=== PATIENT | male | born 1950 | race Caucasian/White ===

== ENCOUNTER 2019-02-12 16:00 | Outpatient (RCR) | payer OTHER, SELFPAY ==
--- NOTE | 2018-12-25 17:30 | PT.OIE ---
Current Diagnoses Pain in unspecified joint (12/25/18) Pain in unspecified shoulder (12/25/18) Radiculopathy, lumbar region (12/25/18) Provider Visit Care Team Role Provider Type Rafiq Griggs MD Attending Provider Physician Family Provider Primary Care Provider Specialty: Family Practice Address: [facility] [place], [address] Email: [email or web address] Physical Therapy Initial Evaluation PT-OP-A Visit Information Start: 12/25/18 15:57 Freq: Status: Active Protocol: Document 12/25/18 17:10 EA (Rec: 12/25/18 17:14 EA [id number]) Out-Patient Physical Therapy Visit Information Visit Information Visit Type Initial Evaluation Visit Start Time 09:00 Visit Stop Time 09:45 Total Visit Minutes 45 Visit Number 1 Evaluation Information Evaluation Date 12/25/18 PT-OP-B Current Condition Start: 12/25/18 15:57 Freq: Status: Active Protocol: Document 12/25/18 16:09 EA (Rec: 12/27/18 09:34 EA [id number]) Current Condition History of Current Condition Onset Date a year ago Current Complaints R low back pain with occasional right posterior thigh/ leg radiation History of Current Condition Pt reports current condition started 1 year ago after working on his deck for several hours with lots of bending and lifting. He reports pain did not resolved with rest and treatment from chiropractor. He noted pain mostly increased upon getting up in the morning and slowly decreased once mobilized, however increased of pain in the late afternoon. Patient denies any significant history that could relate to current condition. 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 Baseline Function- Recreation/Hobbies Daily walks more than a mile per day, Play tennis, skii Current Functional Impairments (Reported) Functional Limitations- ADL's Indep with limitation in all activities that require bending and lifting. Functional Limitations- Mobility/Gait Limited mobility to leas than a mile Functional Limitations- Work/School Retired Functional Limitations- Recreation/ Limited to activities that Hobbies requires bending and lifting Personal Factors Other Personal Factors That May Effect Headaches, thyroid disorder Therapy/Recovery PT-OP-C Subjective Start: 12/25/18 15:57 Freq: Status: Active Protocol: Document 12/25/18 16:09 EA (Rec: 12/27/18 09:34 EA [id number]) OP-PT Subjective Patient Comments Patient Comments I want my PT session to focus on my right low back and and hip area. My shoulder pain is much better at this time. PT-OP-F Manual Assessment Start: 12/25/18 15:57 Freq: Status: Active Protocol: Document 12/25/18 16:09 EA (Rec: 12/27/18 09:34 EA [id number]) Manual Assessments Soft Tissue Assessment Soft Tissue Mobility Assessment Tight pralaumbars, QL, Hamstring, hip external rotators, IT band PT-OP-G Mobility & Gait Start: 12/25/18 15:57 Freq: Status: Active Protocol: Document 12/25/18 16:09 EA (Rec: 12/27/18 09:34 EA [id number]) OP Gait Assessment Gait Gait Assistance Required: Independent Gait Deviations General Gait Pattern Within Normal Limits PT-OP-J Posture/Palpation/Skin Start: 12/25/18 15:57 Freq: Status: Active Protocol: Document 12/25/18 16:09 EA (Rec: 12/27/18 09:34 EA [id number]) Posture Evaluation Comments Posture Comments Minimal increased of lumbar lordosis. Palpation Assessment Location One Palpation Location Paralumbars, right SI joint Palpation Findings Soft Tissue Tightness Tenderness PT-OP-K Range of Motion Start: 12/25/18 15:57 Freq: Status: Active Protocol: Document 12/25/18 16:09 EA (Rec: 12/27/18 09:34 EA [id number]) Lumbar Spine Range of Motion Lumbar Spine Active Percentage Testing Position Standing Flexion 80 Extension 75 Rotation Left 75 Rotation Right 70 Lateral Flexion Left 75 Lateral Flexion Right 75 ROM Limitations Soft Tissue Tightness PT-OP-L Special Tests Start: 12/25/18 15:57 Freq: Status: Active Protocol: Document 12/25/18 16:09 EA (Rec: 12/27/18 09:34 EA [id number]) Special Tests Lumbar Spine Special Tests Other- 2 Test Results Right leg 2 cm greater than left Other- 1 Test Results Gaenslen's test Comments - Slump Test Results - Prone Instability Test Test Results sensitive Straight Leg Raise Test Results + Comments SI joint Neural Special Tests- Lower Body Femoral Nerve Tension Test Results - Sciatic Nerve Tension Test Results - PT-OP-M Strength Start: 12/25/18 15:57 Freq: Status: Active Protocol: Document 12/25/18 16:09 EA (Rec: 12/27/18 09:34 EA [id number]) Hip Strength Hip Manual Muscle Testing Right Flexion (L2) 5 Normal Reason Not Measured Behavior Comments Patient able to walk on toes and heel with no increased of symptoms with weakness noted Left Flexion (L2) 5 Normal Reason Not Measured WFL Comments Patient able to walk on toes and heels with no weakness noted. Knee Strength Knee Manual Muscle Testing Right Flexion (S2) 5 Normal Extension (L3) 5 Normal Left Flexion (S2) 5 Normal Extension (L3) 5 Normal Ankle/Foot Strength Ankle and Foot Manual Muscle Testing Right Dorsiflexion (L4) 5 Normal Plantarflexion (S1) 5 Normal Inversion 5 Normal Eversion (S1) 5 Normal PT-OP-Q Treatments Start: 12/25/18 15:57 Freq: Status: Active Protocol: Document 12/25/18 17:36 EA (Rec: 12/27/18 09:38 EA [id number]) Therapeutic Exercises Supine Exercises 3 Supine Exercise Name Piriformis stretch Reps/Minutes x15SH x 2 reps 2 Supine Exercise Name DKTC Reps/Minutes x30SH x 2 reps 1 Supine Exercise Name SKTC Side bilateral Reps/Minutes x 2reps x 15SH Self-Care/Home Management Treatment Education Patient Education Body Mechanics Home Exercise Program Pain Management Posture PT-OP-T Assessment and Plan Start: 12/25/18 15:57 Freq: Status: Active Protocol: Document 12/25/18 17:10 EA (Rec: 12/25/18 17:14 EA [id number]) Physical Therapy Assessment Rehab Potential Rehabilitation Potential Good Evaluation Complexity Number of Personal Factors/Comorbidities 1-2 Number of Body Systems Impaired 3 Clinical Presentation at Evaluation Stable Impairments Impairments Activity Tolerance Pain Posture ROM Soft Tissue Mobility Strength Goals Four Impairment Impaired lifting Senior Sous Chef Goal (LTG) Patient will perfrom floor to waist 20# lifting with good mechanics with no increase of symptoms. LTG Duration 4 wks Three Impairment Impaired B IT band, lumbar, hamstrings, hips external rotators flexibility Senior Care Goal (LTG) Patient will exhibit normal soft tissue flexibility to both hamstrings, paralumbars, QL, IT band to enhance functional mobility LTG Duration 4 wks Two Impairment Impaired distance mobility Senior Care Goal (LTG) Patient will ambulate > 1 mile per day with no increase of low back symptoms LTG Duration 4 wks One Impairment No HEP in place Senior Sous Chef Goal (LTG) Independent with HEP LTG Duration 3 wks Assessment Summary Assessment Pleasant 68 y/o M patient with a referring diagnosis of lumbar radiculopathy and shoulder joint pain. Today patient exhibits difficulty of trunk mobility due to stiffness and pain to low back region. Assessment reveals, hip external rotator tightness , paralumbars, QL, hamstrings, and both ITB. Special tests reveals. SLR positive to SI joint with + leg length discrepancy of 2 cm but corrected in supine. Palpation reveals R L5-S1 decreased AP mobility and tightness to right paralumbars, Ql with right more than the left. NO weakness to both LE's noted and patient able to walk on toes and heels. Patient does not want right shoulder to focus on therapy. 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 Patient would benefit with skilled PT to address the issue and reach high quality of life. Physical Therapy Plan Frequency and Duration Frequency of Treatment 2x/Week Duration of Treatment 8 wks Plan of Care Start Date 12/25/18 Plan of Care End Date 02/19/19 Therapeutic Interventions Therapeutic Interventions Home Exercise Program Manual Therapy Neuromuscular Re-education Patient/Caregiver Education Self-Care/Home Management Soft Tissue Mobilization Taping Therapeutic Activities Therapeutic Exercises Modalities Cold Pack/Ice Massage Electric Stimulation Hot Packs Ultrasound Next Visit Focus/Plan Next Note Type Treatment Note Next Visit Plan Provide HEP
--- NOTE | 2018-12-28 10:44 | PT.OTN ---
Current Diagnoses Pain in unspecified joint (12/28/18) Pain in unspecified shoulder (12/28/18) Radiculopathy, lumbar region (12/28/18) Physical Therapy Treatment Note PT-OP-A Visit Information Start: 12/25/18 15:57 Freq: Status: Active Protocol: Document 12/28/18 10:35 EA (Rec: 12/28/18 10:43 EA [id number]) Out-Patient Physical Therapy Visit Information Visit Information Visit Type Treatment Note Visit Start Time 09:45 Visit Stop Time 10:38 Total Visit Minutes 53 Visit Number 2 PT-OP-B Current Condition Start: 12/25/18 15:57 Freq: Status: Active Protocol: Document 12/25/18 16:09 EA (Rec: 12/27/18 09:34 EA [id number]) Current Condition History of Current Condition Onset Date a year ago Current Complaints R low back pain with occasional right posterior thigh/ leg radiation History of Current Condition Pt reports current condition started 1 year ago after working on his deck for several hours with lots of bending and lifting. He reports pain did not resolved with rest and treatment from chiropractor. He noted pain mostly increased upon getting up in the morning and slowly decreased once mobilized, however increased of pain in the late afternoon. Patient denies any significant history that could relate to current condition. 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 Baseline Function- Recreation/Hobbies Daily walks more than a mile per day, Play tennis, skii Current Functional Impairments (Reported) Functional Limitations- ADL's Indep with limitation in all activities that require bending and lifting. Functional Limitations- Mobility/Gait Limited mobility to leas than a mile Functional Limitations- Work/School Retired Functional Limitations- Recreation/ Limited to activities that Hobbies requires bending and lifting Personal Factors Other Personal Factors That May Effect Headaches, thyroid disorder Therapy/Recovery PT-OP-C Subjective Start: 12/25/18 15:57 Freq: Status: Active Protocol: Document 12/28/18 10:35 EA (Rec: 12/28/18 10:43 EA [id number]) OP-PT Subjective Patient Comments Patient Comments Pt reports pain comes and goes ; states perform HEP and it helps PT-OP-F Manual Assessment Start: 12/25/18 15:57 Freq: Status: Active Protocol: Document 12/25/18 16:09 EA (Rec: 12/27/18 09:34 EA [id number]) Manual Assessments Soft Tissue Assessment Soft Tissue Mobility Assessment Tight pralaumbars, QL, Hamstring, hip external rotators, IT band PT-OP-G Mobility & Gait Start: 12/25/18 15:57 Freq: Status: Active Protocol: Document 12/25/18 16:09 EA (Rec: 12/27/18 09:34 EA [id number]) OP Gait Assessment Gait Gait Assistance Required: Independent Gait Deviations General Gait Pattern Within Normal Limits PT-OP-J Posture/Palpation/Skin Start: 12/25/18 15:57 Freq: Status: Active Protocol: Document 12/25/18 16:09 EA (Rec: 12/27/18 09:34 EA [id number]) Posture Evaluation Comments Posture Comments Minimal increased of lumbar lordosis. Palpation Assessment Location One Palpation Location Paralumbars, right SI joint Palpation Findings Soft Tissue Tightness Tenderness PT-OP-K Range of Motion Start: 12/25/18 15:57 Freq: Status: Active Protocol: Document 12/25/18 16:09 EA (Rec: 12/27/18 09:34 EA [id number]) Lumbar Spine Range of Motion Lumbar Spine Active Percentage Testing Position Standing Flexion 80 Extension 75 Rotation Left 75 Rotation Right 70 Lateral Flexion Left 75 Lateral Flexion Right 75 ROM Limitations Soft Tissue Tightness PT-OP-L Special Tests Start: 12/25/18 15:57 Freq: Status: Active Protocol: Document 12/25/18 16:09 EA (Rec: 12/27/18 09:34 EA [id number]) Special Tests Lumbar Spine Special Tests Other- 2 Test Results Right leg 2 cm greater than left Other- 1 Test Results Gaenslen's test Comments - Slump Test Results - Prone Instability Test Test Results sensitive Straight Leg Raise Test Results + Comments SI joint Neural Special Tests- Lower Body Femoral Nerve Tension Test Results - Sciatic Nerve Tension Test Results - PT-OP-M Strength Start: 12/25/18 15:57 Freq: Status: Active Protocol: Document 12/25/18 16:09 EA (Rec: 12/27/18 09:34 EA [id number]) Hip Strength Hip Manual Muscle Testing Right Flexion (L2) 5 Normal Reason Not Measured Behavior Comments Patient able to walk on toes and heel with no increased of symptoms with weakness noted Left Flexion (L2) 5 Normal Reason Not Measured WFL Comments Patient able to walk on toes and heels with no weakness noted. Knee Strength Knee Manual Muscle Testing Right Flexion (S2) 5 Normal Extension (L3) 5 Normal Left Flexion (S2) 5 Normal Extension (L3) 5 Normal Ankle/Foot Strength Ankle and Foot Manual Muscle Testing Right Dorsiflexion (L4) 5 Normal Plantarflexion (S1) 5 Normal Inversion 5 Normal Eversion (S1) 5 Normal PT-OP-Q Treatments Start: 12/25/18 15:57 Freq: Status: Active Protocol: Document 12/28/18 10:35 EA (Rec: 12/28/18 10:43 EA [id number]) Cardio Equipment Recumbent Stepper (Sci-Fit) Duration (Minutes) 5 Resistance 3 Other warm up Therapeutic Exercises Supine Exercises 6 Supine Exercise Name PPT with marching Reps/Minutes x 10 reps x 3 sets 5 Supine Exercise Name PPT with SLR Reps/Minutes x 10 reps x 2 sets each leg 4 Supine Exercise Name Hamstring stretch Side bilateral Reps/Minutes x 15SH x 2 reps Comments manual/passive 3 Supine Exercise Name Piriformis stretch Reps/Minutes x15SH x 2 reps 2 Supine Exercise Name DKTC Reps/Minutes x30SH x 2 reps 1 Supine Exercise Name SKTC Side bilateral Reps/Minutes x 2reps x 15SH Standing Exercises 1 Standing Exercise Name floor to waist squat lift Resistance 20# Reps/Minutes 5 reps x 2 sets Comments cues for body mechanics Manual Therapy Treatment Soft Tissue Mobilization 1 Body Location Right paralumbars, upper gluteals Mobilization Type Myofascial Release Rolling Sustained Pressure Intensity/Depth Moderate Body Position Prone Comments To start with effleurage and kneading and end with effleurage. Self-Care/Home Management Treatment Education Patient Education Home Exercise Program PT-OP-R Modalities Start: 12/25/18 15:57 Freq: Status: Active Protocol: Document 12/28/18 10:35 EA (Rec: 12/28/18 10:43 EA [id number]) Electric Stimulation Electric Stimulation Interferential Current (IFC) Body Location right paralumbars, upper gluteals Duration (Minutes) 15 Intensity 15 Combined With Heat/Cold Hot Pack PT-OP-T Assessment and Plan Start: 12/25/18 15:57 Freq: Status: Active Protocol: Document 12/28/18 10:35 EA (Rec: 12/28/18 10:43 EA [id number]) Physical Therapy Assessment Assessment Summary Assessment Tolerated treatment well. Cont with current plan. Physical Therapy Plan Next Visit Focus/Plan Next Note Type Treatment Note
--- NOTE | 2019-01-01 11:12 | PT.OTN ---
Current Diagnoses Pain in unspecified joint (01/01/19) Pain in unspecified shoulder (01/01/19) Radiculopathy, lumbar region (01/01/19) Physical Therapy Treatment Note PT-OP-A Visit Information Start: 12/25/18 15:57 Freq: Status: Active Protocol: Document 01/01/19 09:49 EA (Rec: 01/01/19 10:33 EA [id number]) Out-Patient Physical Therapy Visit Information Visit Information Visit Type Treatment Note Visit Start Time 09:45 Visit Stop Time 10:38 Total Visit Minutes 53 Visit Number 3 PT-OP-B Current Condition Start: 12/25/18 15:57 Freq: Status: Active Protocol: Document 12/25/18 16:09 EA (Rec: 12/27/18 09:34 EA [id number]) Current Condition History of Current Condition Onset Date a year ago Current Complaints R low back pain with occasional right posterior thigh/ leg radiation History of Current Condition Pt reports current condition started 1 year ago after working on his deck for several hours with lots of bending and lifting. He reports pain did not resolved with rest and treatment from chiropractor. He noted pain mostly increased upon getting up in the morning and slowly decreased once mobilized, however increased of pain in the late afternoon. Patient denies any significant history that could relate to current condition. 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 Baseline Function- Recreation/Hobbies Daily walks more than a mile per day, Play tennis, skii Current Functional Impairments (Reported) Functional Limitations- ADL's Indep with limitation in all activities that require bending and lifting. Functional Limitations- Mobility/Gait Limited mobility to leas than a mile Functional Limitations- Work/School Retired Functional Limitations- Recreation/ Limited to activities that Hobbies requires bending and lifting Personal Factors Other Personal Factors That May Effect Headaches, thyroid disorder Therapy/Recovery PT-OP-C Subjective Start: 12/25/18 15:57 Freq: Status: Active Protocol: Document 01/01/19 09:49 EA (Rec: 01/01/19 10:33 EA [id number]) OP-PT Subjective Patient Comments Patient Comments Pt reports complaint with HEP; states frequency of pain is much less. PT-OP-F Manual Assessment Start: 12/25/18 15:57 Freq: Status: Active Protocol: Document 12/25/18 16:09 EA (Rec: 12/27/18 09:34 EA [id number]) Manual Assessments Soft Tissue Assessment Soft Tissue Mobility Assessment Tight pralaumbars, QL, Hamstring, hip external rotators, IT band PT-OP-G Mobility & Gait Start: 12/25/18 15:57 Freq: Status: Active Protocol: Document 12/25/18 16:09 EA (Rec: 12/27/18 09:34 EA [id number]) OP Gait Assessment Gait Gait Assistance Required: Independent Gait Deviations General Gait Pattern Within Normal Limits PT-OP-J Posture/Palpation/Skin Start: 12/25/18 15:57 Freq: Status: Active Protocol: Document 12/25/18 16:09 EA (Rec: 12/27/18 09:34 EA [id number]) Posture Evaluation Comments Posture Comments Minimal increased of lumbar lordosis. Palpation Assessment Location One Palpation Location Paralumbars, right SI joint Palpation Findings Soft Tissue Tightness Tenderness PT-OP-K Range of Motion Start: 12/25/18 15:57 Freq: Status: Active Protocol: Document 12/25/18 16:09 EA (Rec: 12/27/18 09:34 EA [id number]) Lumbar Spine Range of Motion Lumbar Spine Active Percentage Testing Position Standing Flexion 80 Extension 75 Rotation Left 75 Rotation Right 70 Lateral Flexion Left 75 Lateral Flexion Right 75 ROM Limitations Soft Tissue Tightness PT-OP-L Special Tests Start: 12/25/18 15:57 Freq: Status: Active Protocol: Document 12/25/18 16:09 EA (Rec: 12/27/18 09:34 EA [id number]) Special Tests Lumbar Spine Special Tests Other- 2 Test Results Right leg 2 cm greater than left Other- 1 Test Results Gaenslen's test Comments - Slump Test Results - Prone Instability Test Test Results sensitive Straight Leg Raise Test Results + Comments SI joint Neural Special Tests- Lower Body Femoral Nerve Tension Test Results - Sciatic Nerve Tension Test Results - PT-OP-M Strength Start: 12/25/18 15:57 Freq: Status: Active Protocol: Document 12/25/18 16:09 EA (Rec: 12/27/18 09:34 EA [id number]) Hip Strength Hip Manual Muscle Testing Right Flexion (L2) 5 Normal Reason Not Measured Behavior Comments Patient able to walk on toes and heel with no increased of symptoms with weakness noted Left Flexion (L2) 5 Normal Reason Not Measured WFL Comments Patient able to walk on toes and heels with no weakness noted. Knee Strength Knee Manual Muscle Testing Right Flexion (S2) 5 Normal Extension (L3) 5 Normal Left Flexion (S2) 5 Normal Extension (L3) 5 Normal Ankle/Foot Strength Ankle and Foot Manual Muscle Testing Right Dorsiflexion (L4) 5 Normal Plantarflexion (S1) 5 Normal Inversion 5 Normal Eversion (S1) 5 Normal PT-OP-Q Treatments Start: 12/25/18 15:57 Freq: Status: Active Protocol: Document 01/01/19 09:49 EA (Rec: 01/01/19 10:33 EA [id number]) Cardio Equipment Recumbent Stepper (Sci-Fit) Duration (Minutes) 5 Resistance 3 Other warm up Therapeutic Exercises Supine Exercises 6 Supine Exercise Name PPT with marching Reps/Minutes x 10 reps x 3 sets 5 Supine Exercise Name PPT with SLR Reps/Minutes x 10 reps x 2 sets each leg 4 Supine Exercise Name Hamstring stretch Side bilateral Reps/Minutes x 15SH x 2 reps Comments manual/passive 3 Supine Exercise Name Piriformis stretch Reps/Minutes x15SH x 2 reps 2 Supine Exercise Name DKTC Reps/Minutes x30SH x 2 reps 1 Supine Exercise Name SKTC Side bilateral Reps/Minutes x 2reps x 15SH Sitting Exercises 1 Sitting Exercise Name low chair fwd bending: front and sides. Reps/Minutes x15SH x 2 reps Standing Exercises 1 Standing Exercise Name floor to waist squat lift Resistance 20# Reps/Minutes 5 reps x 2 sets Comments cues for body mechanics Manual Therapy Treatment Soft Tissue Mobilization 1 Body Location Right paralumbars, upper gluteals Mobilization Type Myofascial Release Rolling Sustained Pressure Intensity/Depth Moderate Body Position Prone Comments To start with effleurage and kneading and end with effleurage. PT-OP-R Modalities Start: 12/25/18 15:57 Freq: Status: Active Protocol: Document 01/01/19 09:49 EA (Rec: 01/01/19 10:33 EA [id number]) Electric Stimulation Electric Stimulation Interferential Current (IFC) Body Location right paralumbars, upper gluteals Duration (Minutes) 15 Intensity 15 Combined With Heat/Cold Hot Pack PT-OP-T Assessment and Plan Start: 12/25/18 15:57 Freq: Status: Active Protocol: Document 01/01/19 09:49 EA (Rec: 01/01/19 10:33 EA [id number]) Physical Therapy Assessment Assessment Summary Assessment Improved exercises tolerance and manual PT. Pt to see next session in conditioning preparation for tennis sports. Physical Therapy Plan Next Visit Focus/Plan Next Note Type Treatment Note Next Visit Plan Leg and trunk conditioning exercises.
--- NOTE | 2019-01-18 10:45 | PT.OTN ---
Current Diagnoses Pain in unspecified joint (01/18/19) Pain in unspecified shoulder (01/18/19) Radiculopathy, lumbar region (01/18/19) Physical Therapy Treatment Note PT-OP-A Visit Information Start: 12/25/18 15:57 Freq: Status: Active Protocol: Document 01/18/19 09:36 EA (Rec: 01/18/19 09:43 EA [id number]) Out-Patient Physical Therapy Visit Information Visit Information Visit Type Treatment Note Visit Start Time 09:00 Visit Stop Time 09:53 Total Visit Minutes 53 Visit Number 4 PT-OP-B Current Condition Start: 12/25/18 15:57 Freq: Status: Active Protocol: Document 12/25/18 16:09 EA (Rec: 12/27/18 09:34 EA [id number]) Current Condition History of Current Condition Onset Date a year ago Current Complaints R low back pain with occasional right posterior thigh/ leg radiation History of Current Condition Pt reports current condition started 1 year ago after working on his deck for several hours with lots of bending and lifting. He reports pain did not resolved with rest and treatment from chiropractor. He noted pain mostly increased upon getting up in the morning and slowly decreased once mobilized, however increased of pain in the late afternoon. Patient denies any significant history that could relate to current condition. 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 Baseline Function- Recreation/Hobbies Daily walks more than a mile per day, Play tennis, skii Current Functional Impairments (Reported) Functional Limitations- ADL's Indep with limitation in all activities that require bending and lifting. Functional Limitations- Mobility/Gait Limited mobility to leas than a mile Functional Limitations- Work/School Retired Functional Limitations- Recreation/ Limited to activities that Hobbies requires bending and lifting Personal Factors Other Personal Factors That May Effect Headaches, thyroid disorder Therapy/Recovery PT-OP-C Subjective Start: 12/25/18 15:57 Freq: Status: Active Protocol: Document 01/18/19 09:36 EA (Rec: 01/18/19 09:43 EA [id number]) OP-PT Subjective Patient Comments Patient Comments Pt reports very less frequent symptoms aggravation; states much feeling better at this time. PT-OP-F Manual Assessment Start: 12/25/18 15:57 Freq: Status: Active Protocol: Document 12/25/18 16:09 EA (Rec: 12/27/18 09:34 EA [id number]) Manual Assessments Soft Tissue Assessment Soft Tissue Mobility Assessment Tight pralaumbars, QL, Hamstring, hip external rotators, IT band PT-OP-G Mobility & Gait Start: 12/25/18 15:57 Freq: Status: Active Protocol: Document 12/25/18 16:09 EA (Rec: 12/27/18 09:34 EA [id number]) OP Gait Assessment Gait Gait Assistance Required: Independent Gait Deviations General Gait Pattern Within Normal Limits PT-OP-J Posture/Palpation/Skin Start: 12/25/18 15:57 Freq: Status: Active Protocol: Document 12/25/18 16:09 EA (Rec: 12/27/18 09:34 EA [id number]) Posture Evaluation Comments Posture Comments Minimal increased of lumbar lordosis. Palpation Assessment Location One Palpation Location Paralumbars, right SI joint Palpation Findings Soft Tissue Tightness Tenderness PT-OP-K Range of Motion Start: 12/25/18 15:57 Freq: Status: Active Protocol: Document 12/25/18 16:09 EA (Rec: 12/27/18 09:34 EA [id number]) Lumbar Spine Range of Motion Lumbar Spine Active Percentage Testing Position Standing Flexion 80 Extension 75 Rotation Left 75 Rotation Right 70 Lateral Flexion Left 75 Lateral Flexion Right 75 ROM Limitations Soft Tissue Tightness PT-OP-L Special Tests Start: 12/25/18 15:57 Freq: Status: Active Protocol: Document 12/25/18 16:09 EA (Rec: 12/27/18 09:34 EA [id number]) Special Tests Lumbar Spine Special Tests Other- 2 Test Results Right leg 2 cm greater than left Other- 1 Test Results Gaenslen's test Comments - Slump Test Results - Prone Instability Test Test Results sensitive Straight Leg Raise Test Results + Comments SI joint Neural Special Tests- Lower Body Femoral Nerve Tension Test Results - Sciatic Nerve Tension Test Results - PT-OP-M Strength Start: 12/25/18 15:57 Freq: Status: Active Protocol: Document 12/25/18 16:09 EA (Rec: 12/27/18 09:34 EA [id number]) Hip Strength Hip Manual Muscle Testing Right Flexion (L2) 5 Normal Reason Not Measured Behavior Comments Patient able to walk on toes and heel with no increased of symptoms with weakness noted Left Flexion (L2) 5 Normal Reason Not Measured WFL Comments Patient able to walk on toes and heels with no weakness noted. Knee Strength Knee Manual Muscle Testing Right Flexion (S2) 5 Normal Extension (L3) 5 Normal Left Flexion (S2) 5 Normal Extension (L3) 5 Normal Ankle/Foot Strength Ankle and Foot Manual Muscle Testing Right Dorsiflexion (L4) 5 Normal Plantarflexion (S1) 5 Normal Inversion 5 Normal Eversion (S1) 5 Normal PT-OP-Q Treatments Start: 12/25/18 15:57 Freq: Status: Active Protocol: Document 01/18/19 09:36 EA (Rec: 01/18/19 09:43 EA [id number]) Cardio Equipment Recumbent Stepper (Sci-Fit) Duration (Minutes) 5 Resistance 3 Other warm up Therapeutic Exercises Supine Exercises 6 Supine Exercise Name PPT with marching Reps/Minutes x 10 reps x 3 sets 5 Supine Exercise Name PPT with SLR Reps/Minutes x 10 reps x 2 sets each leg 4 Supine Exercise Name Hamstring stretch Side bilateral Reps/Minutes x 15SH x 2 reps Comments manual/passive 3 Supine Exercise Name Piriformis stretch Reps/Minutes x15SH x 2 reps 2 Supine Exercise Name DKTC Reps/Minutes x30SH x 2 reps 1 Supine Exercise Name SKTC Side bilateral Reps/Minutes x 2reps x 15SH Prone Exercises 2 Prone Exercise Name Camel and cat Reps/Minutes x 15 reps Sitting Exercises 1 Sitting Exercise Name low chair fwd bending: front and sides. Reps/Minutes x15SH x 2 reps Standing Exercises 4 Standing Exercise Name Side step squat Resistance YTB Reps/Minutes 12 ft x 2 lines Comments cues for posture 3 Standing Exercise Name fwd lunges with no support Reps/Minutes x 15 ft line x 2 Comments cues for posture 2 Standing Exercise Name Correctetive squatting Reps/Minutes x 10 reps x 2 sets 1 Standing Exercise Name Hamstrins, hip flexors, and calves stretch Side bilateral Reps/Minutes x 15SH x 2 reps each Manual Therapy Treatment Soft Tissue Mobilization 1 Body Location Right paralumbars, upper gluteals Mobilization Type Myofascial Release Rolling Sustained Pressure Intensity/Depth Moderate Body Position Prone Comments To start with effleurage and kneading and end with effleurage. PT-OP-R Modalities Start: 12/25/18 15:57 Freq: Status: Active Protocol: Document 01/18/19 09:36 EA (Rec: 01/18/19 09:43 EA [id number]) Electric Stimulation Electric Stimulation Interferential Current (IFC) Body Location right paralumbars, upper gluteals Duration (Minutes) 15 Intensity 15 Combined With Heat/Cold Hot Pack PT-OP-T Assessment and Plan Start: 12/25/18 15:57 Freq: Status: Active Protocol: Document 01/18/19 09:36 EA (Rec: 01/18/19 09:43 EA [id number]) Physical Therapy Assessment Assessment Summary Assessment No discomfort noted during therex. Patient requires for form and posture during standing therex. Physical Therapy Plan Next Visit Focus/Plan Next Visit Plan Provide HEP with images
--- NOTE | 2019-01-25 12:15 | PT.OTN ---
Current Diagnoses Pain in unspecified joint (01/25/19) Pain in unspecified shoulder (01/25/19) Radiculopathy, lumbar region (01/25/19) Physical Therapy Treatment Note PT-OP-A Visit Information Start: 12/25/18 15:57 Freq: Status: Active Protocol: Document 01/25/19 11:14 EA (Rec: 01/25/19 11:15 EA [id number]) Out-Patient Physical Therapy Visit Information Visit Information Visit Type Treatment Note Visit Start Time 09:45 Visit Stop Time 10:38 Total Visit Minutes 53 Visit Number 5 PT-OP-B Current Condition Start: 12/25/18 15:57 Freq: Status: Active Protocol: Document 12/25/18 16:09 EA (Rec: 12/27/18 09:34 EA [id number]) Current Condition History of Current Condition Onset Date a year ago Current Complaints R low back pain with occasional right posterior thigh/ leg radiation History of Current Condition Pt reports current condition started 1 year ago after working on his deck for several hours with lots of bending and lifting. He reports pain did not resolved with rest and treatment from chiropractor. He noted pain mostly increased upon getting up in the morning and slowly decreased once mobilized, however increased of pain in the late afternoon. Patient denies any significant history that could relate to current condition. 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 Baseline Function- Recreation/Hobbies Daily walks more than a mile per day, Play tennis, skii Current Functional Impairments (Reported) Functional Limitations- ADL's Indep with limitation in all activities that require bending and lifting. Functional Limitations- Mobility/Gait Limited mobility to leas than a mile Functional Limitations- Work/School Retired Functional Limitations- Recreation/ Limited to activities that Hobbies requires bending and lifting Personal Factors Other Personal Factors That May Effect Headaches, thyroid disorder Therapy/Recovery PT-OP-C Subjective Start: 12/25/18 15:57 Freq: Status: Active Protocol: Document 01/25/19 12:12 EA (Rec: 01/25/19 12:15 EA [id number]) OP-PT Subjective Patient Comments Patient Comments Pt reports complaint with HEP and would like to have standing exercises HEP; states very less frequent pain to low back. Patient Reported Progress Improving PT-OP-F Manual Assessment Start: 12/25/18 15:57 Freq: Status: Active Protocol: Document 12/25/18 16:09 EA (Rec: 12/27/18 09:34 EA [id number]) Manual Assessments Soft Tissue Assessment Soft Tissue Mobility Assessment Tight pralaumbars, QL, Hamstring, hip external rotators, IT band PT-OP-G Mobility & Gait Start: 12/25/18 15:57 Freq: Status: Active Protocol: Document 12/25/18 16:09 EA (Rec: 12/27/18 09:34 EA [id number]) OP Gait Assessment Gait Gait Assistance Required: Independent Gait Deviations General Gait Pattern Within Normal Limits PT-OP-J Posture/Palpation/Skin Start: 12/25/18 15:57 Freq: Status: Active Protocol: Document 12/25/18 16:09 EA (Rec: 12/27/18 09:34 EA [id number]) Posture Evaluation Comments Posture Comments Minimal increased of lumbar lordosis. Palpation Assessment Location One Palpation Location Paralumbars, right SI joint Palpation Findings Soft Tissue Tightness Tenderness PT-OP-K Range of Motion Start: 12/25/18 15:57 Freq: Status: Active Protocol: Document 12/25/18 16:09 EA (Rec: 12/27/18 09:34 EA [id number]) Lumbar Spine Range of Motion Lumbar Spine Active Percentage Testing Position Standing Flexion 80 Extension 75 Rotation Left 75 Rotation Right 70 Lateral Flexion Left 75 Lateral Flexion Right 75 ROM Limitations Soft Tissue Tightness PT-OP-L Special Tests Start: 12/25/18 15:57 Freq: Status: Active Protocol: Document 12/25/18 16:09 EA (Rec: 12/27/18 09:34 EA [id number]) Special Tests Lumbar Spine Special Tests Other- 2 Test Results Right leg 2 cm greater than left Other- 1 Test Results Gaenslen's test Comments - Slump Test Results - Prone Instability Test Test Results sensitive Straight Leg Raise Test Results + Comments SI joint Neural Special Tests- Lower Body Femoral Nerve Tension Test Results - Sciatic Nerve Tension Test Results - PT-OP-M Strength Start: 12/25/18 15:57 Freq: Status: Active Protocol: Document 12/25/18 16:09 EA (Rec: 12/27/18 09:34 EA [id number]) Hip Strength Hip Manual Muscle Testing Right Flexion (L2) 5 Normal Reason Not Measured Behavior Comments Patient able to walk on toes and heel with no increased of symptoms with weakness noted Left Flexion (L2) 5 Normal Reason Not Measured WFL Comments Patient able to walk on toes and heels with no weakness noted. Knee Strength Knee Manual Muscle Testing Right Flexion (S2) 5 Normal Extension (L3) 5 Normal Left Flexion (S2) 5 Normal Extension (L3) 5 Normal Ankle/Foot Strength Ankle and Foot Manual Muscle Testing Right Dorsiflexion (L4) 5 Normal Plantarflexion (S1) 5 Normal Inversion 5 Normal Eversion (S1) 5 Normal PT-OP-Q Treatments Start: 12/25/18 15:57 Freq: Status: Active Protocol: Document 01/25/19 12:12 EA (Rec: 01/25/19 12:15 EA [id number]) Cardio Equipment Recumbent Stepper (Sci-Fit) Duration (Minutes) 5 Resistance 3 Other warm up Therapeutic Exercises Supine Exercises 6 Supine Exercise Name PPT with marching Reps/Minutes x 10 reps x 3 sets 5 Supine Exercise Name PPT with SLR Reps/Minutes x 10 reps x 2 sets each leg 4 Supine Exercise Name Hamstring stretch Side bilateral Reps/Minutes x 15SH x 2 reps Comments manual/passive 3 Supine Exercise Name Piriformis stretch Reps/Minutes x15SH x 2 reps 2 Supine Exercise Name DKTC Reps/Minutes x30SH x 2 reps 1 Supine Exercise Name SKTC Side bilateral Reps/Minutes x 2reps x 15SH Prone Exercises 2 Prone Exercise Name Camel and cat Reps/Minutes x 15 reps Comments HEP comp Standing Exercises 4 Standing Exercise Name Side step squat Resistance YTB Reps/Minutes 12 ft x 2 lines Comments HEP comp 3 Standing Exercise Name fwd lunges with no support Reps/Minutes x 15 ft line x 2 Comments HEP comp 2 Standing Exercise Name Correctetive squatting Reps/Minutes x 10 reps x 2 sets Comments HEP comp 1 Standing Exercise Name Hamstrins, hip flexors, and calves stretch Side bilateral Reps/Minutes x 15SH x 2 reps each Comments HEP comp Self-Care/Home Management Treatment Education Patient Education Body Mechanics Home Exercise Program Pain Management Posture PT-OP-R Modalities Start: 12/25/18 15:57 Freq: Status: Active Protocol: Document 01/25/19 12:12 EA (Rec: 01/25/19 12:15 EA [id number]) Electric Stimulation Electric Stimulation Interferential Current (IFC) Body Location right paralumbars, upper gluteals Duration (Minutes) 15 Intensity 15 Combined With Heat/Cold Hot Pack PT-OP-T Assessment and Plan Start: 12/25/18 15:57 Freq: Status: Active Protocol: Document 01/25/19 12:12 EA (Rec: 01/25/19 12:15 EA [id number]) Physical Therapy Assessment Assessment Summary Assessment Pt tolerated treatment well; educated with new HEP and showed good understanding. Patient to see 2 weeks after for follow up and possible discharge if no more complaint . Physical Therapy Plan Next Visit Focus/Plan Next Note Type Treatment Note Next Visit Plan Re-eval
--- NOTE | 2019-02-15 14:27 | PT.OTN ---
Current Diagnoses Pain in unspecified joint (02/12/19) Pain in unspecified shoulder (02/12/19) Radiculopathy, lumbar region (02/12/19) Physical Therapy Treatment Note PT-OP-A Visit Information Start: 12/25/18 15:57 Freq: Status: Active Protocol: Document 02/15/19 13:40 EA (Rec: 02/15/19 13:45 EA [id number]) Out-Patient Physical Therapy Visit Information Visit Information Visit Type Treatment Note Visit Start Time 16:00 Visit Stop Time 16:40 Total Visit Minutes 40 Visit Number 6 PT-OP-B Current Condition Start: 12/25/18 15:57 Freq: Status: Active Protocol: Document 12/25/18 16:09 EA (Rec: 12/27/18 09:34 EA [id number]) Current Condition History of Current Condition Onset Date a year ago Current Complaints R low back pain with occasional right posterior thigh/ leg radiation History of Current Condition Pt reports current condition started 1 year ago after working on his deck for several hours with lots of bending and lifting. He reports pain did not resolved with rest and treatment from chiropractor. He noted pain mostly increased upon getting up in the morning and slowly decreased once mobilized, however increased of pain in the late afternoon. Patient denies any significant history that could relate to current condition. 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 Baseline Function- Recreation/Hobbies Daily walks more than a mile per day, Play tennis, skii Current Functional Impairments (Reported) Functional Limitations- ADL's Indep with limitation in all activities that require bending and lifting. Functional Limitations- Mobility/Gait Limited mobility to leas than a mile Functional Limitations- Work/School Retired Functional Limitations- Recreation/ Limited to activities that Hobbies requires bending and lifting Personal Factors Other Personal Factors That May Effect Headaches, thyroid disorder Therapy/Recovery PT-OP-C Subjective Start: 12/25/18 15:57 Freq: Status: Active Protocol: Document 02/15/19 13:40 EA (Rec: 02/15/19 13:45 EA [id number]) OP-PT Subjective Patient Comments Patient Comments Pt reports very less frequent back pain with occasional mornign stiffness. Patient Reported Progress Improving PT-OP-F Manual Assessment Start: 12/25/18 15:57 Freq: Status: Active Protocol: Document 12/25/18 16:09 EA (Rec: 12/27/18 09:34 EA [id number]) Manual Assessments Soft Tissue Assessment Soft Tissue Mobility Assessment Tight pralaumbars, QL, Hamstring, hip external rotators, IT band PT-OP-G Mobility & Gait Start: 12/25/18 15:57 Freq: Status: Active Protocol: Document 12/25/18 16:09 EA (Rec: 12/27/18 09:34 EA [id number]) OP Gait Assessment Gait Gait Assistance Required: Independent Gait Deviations General Gait Pattern Within Normal Limits PT-OP-J Posture/Palpation/Skin Start: 12/25/18 15:57 Freq: Status: Active Protocol: Document 12/25/18 16:09 EA (Rec: 12/27/18 09:34 EA [id number]) Posture Evaluation Comments Posture Comments Minimal increased of lumbar lordosis. Palpation Assessment Location One Palpation Location Paralumbars, right SI joint Palpation Findings Soft Tissue Tightness Tenderness PT-OP-K Range of Motion Start: 12/25/18 15:57 Freq: Status: Active Protocol: Document 12/25/18 16:09 EA (Rec: 12/27/18 09:34 EA [id number]) Lumbar Spine Range of Motion Lumbar Spine Active Percentage Testing Position Standing Flexion 80 Extension 75 Rotation Left 75 Rotation Right 70 Lateral Flexion Left 75 Lateral Flexion Right 75 ROM Limitations Soft Tissue Tightness PT-OP-L Special Tests Start: 12/25/18 15:57 Freq: Status: Active Protocol: Document 12/25/18 16:09 EA (Rec: 12/27/18 09:34 EA [id number]) Special Tests Lumbar Spine Special Tests Other- 2 Test Results Right leg 2 cm greater than left Other- 1 Test Results Gaenslen's test Comments - Slump Test Results - Prone Instability Test Test Results sensitive Straight Leg Raise Test Results + Comments SI joint Neural Special Tests- Lower Body Femoral Nerve Tension Test Results - Sciatic Nerve Tension Test Results - PT-OP-M Strength Start: 12/25/18 15:57 Freq: Status: Active Protocol: Document 12/25/18 16:09 EA (Rec: 12/27/18 09:34 EA [id number]) Hip Strength Hip Manual Muscle Testing Right Flexion (L2) 5 Normal Reason Not Measured Behavior Comments Patient able to walk on toes and heel with no increased of symptoms with weakness noted Left Flexion (L2) 5 Normal Reason Not Measured WFL Comments Patient able to walk on toes and heels with no weakness noted. Knee Strength Knee Manual Muscle Testing Right Flexion (S2) 5 Normal Extension (L3) 5 Normal Left Flexion (S2) 5 Normal Extension (L3) 5 Normal Ankle/Foot Strength Ankle and Foot Manual Muscle Testing Right Dorsiflexion (L4) 5 Normal Plantarflexion (S1) 5 Normal Inversion 5 Normal Eversion (S1) 5 Normal PT-OP-Q Treatments Start: 12/25/18 15:57 Freq: Status: Active Protocol: Document 02/15/19 13:40 EA (Rec: 02/15/19 13:45 EA [id number]) Cardio Equipment Recumbent Stepper (Sci-Fit) Duration (Minutes) 5 Resistance 3 Other warm up Therapeutic Exercises Prone Exercises 2 Prone Exercise Name Camel and cat Reps/Minutes x 15 reps Comments HEP comp Sitting Exercises 1 Sitting Exercise Name low chair fwd bending: front and sides. Reps/Minutes x15SH x 2 reps Comments HEP comp Standing Exercises 6 Standing Exercise Name Shoulder exten Side bilateral Resistance Lv1 Reps/Minutes x 15 reps 5 Standing Exercise Name Shoulder horiz abd. Side bilateral Resistance Lv2 Reps/Minutes x 15 reps Comments HEP comp 4 Standing Exercise Name Side step squat Resistance YTB Reps/Minutes 12 ft x 2 lines Comments HEP comp 3 Standing Exercise Name fwd lunges with no support Reps/Minutes x 15 ft line x 2 Comments HEP comp 2 Standing Exercise Name Correctetive squatting Reps/Minutes x 10 reps x 2 sets Comments HEP comp 1 Standing Exercise Name Hamstrins, hip flexors, and calves stretch Side bilateral Reps/Minutes x 15SH x 2 reps each Comments HEP comp Self-Care/Home Management Treatment Education Patient Education Body Mechanics Home Exercise Program Posture PT-OP-R Modalities Start: 12/25/18 15:57 Freq: Status: Active Protocol: Document 01/25/19 12:12 EA (Rec: 01/25/19 12:15 EA [id number]) Electric Stimulation Electric Stimulation Interferential Current (IFC) Body Location right paralumbars, upper gluteals Duration (Minutes) 15 Intensity 15 Combined With Heat/Cold Hot Pack PT-OP-T Assessment and Plan Start: 12/25/18 15:57 Freq: Status: Active Protocol: Document 02/15/19 14:22 EA (Rec: 02/15/19 14:24 EA [id number]) Physical Therapy Assessment Goals Four Impairment Impaired lifting Thread Singer Goal (LTG) Patient will perfrom floor to waist 20# lifting with good mechanics with no increase of symptoms. LTG Duration 4 wks (goal reached) Three Impairment Impaired B IT band, lumbar, hamstrings, hips external rotators flexibility Thread Singer Goal (LTG) Patient will exhibit normal soft tissue flexibility to both hamstrings, paralumbars, QL, IT band to enhance functional mobility LTG Duration 4 wks (Improving) Two Impairment Impaired distance mobility Thread Singer Goal (LTG) Patient will ambulate > 1 mile per day with no increase of low back symptoms LTG Duration 4 wks (Goals reached One Impairment No HEP in place Thread Singer Goal (LTG) Independent with HEP LTG Duration 3 wks (Goal reached) Assessment Summary Assessment Pt is discharge upon request; educated with HEP and agreed to comply. Physical Therapy Plan Discharge Physical Therapy Discharge Reasons Patient Request Next Visit Focus/Plan Next Note Type Treatment Note
== END 2019-02-15 16:46 | disposition home or self-care (01) ==
LOC: PHYS 16:00
PROVIDERS: Family Provider Family Medicine; PCP Family Medicine; Visit Provider Family Medicine
DX: M54.16 Radiculopathy, lumbar region (principal); M25.519 Pain in unspecified shoulder; M25.50 Pain in unspecified joint
CPT/HCPCS: 97014; 97110; 97140; 97161; 97535; G0283

== ENCOUNTER 2019-06-15 13:00 | Emergency (ER) | payer OTHER, SELFPAY ==
[2019-06-15 13:00] VITALS: BP 149/78; PULSE 65; RESP 14; TEMP 36.6; O2SAT 100
--- NOTE | 2019-06-15 13:09 | DI.CT.S_ITS ---
PROCEDURE: CT HEAD/BRAIN WO CON INDICATIONS: Blurry vision in left eye. Left arm tingling TECHNIQUE: Noncontrast 4.5 mm thick angled axial sections acquired from the foramen magnum to the vertex, with coronal and sagittal reformats. For radiation dose reduction, the following was used: automated exposure control, adjustment of mA and/or kV according to patient size. COMPARISON: None. FINDINGS: Image quality: Excellent. CSF spaces: Basal cisterns are patent. No extra-axial fluid collections. The ventricles are symmetric in size and shape. 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 Brain: No intracranial bleeds or masses. There is cerebral volume loss for age, with resultant ventricular and sulcal prominence. There are periventricular and deep white matter chronic small vessel ischemic changes. There is intracranial internal carotid artery atherosclerosis. Skull and face: Calvarium and visualized facial bones appear intact, without suspicious lesions. Sinuses: Visualized sinuses and mastoids are clear. IMPRESSION: 1. No acute intracranial abnormalities. Dictated by: Laurent Pak M.D. on 06/15/2019 at 13:29 Approved by: Laurent Pak M.D. on 06/15/2019 at 13:31
--- NOTE | 2019-06-15 13:22 | PC.NURSE ---
pt was on the computer at 1100 when he developed left eye blurry vision, left arm tingling and numbness. reports his symptoms are resolved except for some minor left arm numbness.
[2019-06-15 13:25] LABS: Add Manual Diff / Slide Review NO; Basophils Absolute Auto 100 /uL (0-100); Basophils Percent Auto 0.8 % (0-2); Eosinophils Absolute Auto 200 /uL (0-450); Eosinophils Percent Auto 2.5 % (2-4); Hemoglobin 16.5 g/dL (13.5-17.5); Lymphocytes Absolute Auto 2100 /uL (1100-4500); Lymphocytes Percent Auto 28.8 % (25-40); Mean Corpuscular HGB Conc 34.3 % (30-36); Mean Corpuscular Hemoglobin 31.9 PG (26-34); Mean Corpuscular Volume 92.8 fL (80-100); Monocytes Absolute Auto 700 /uL (0-900); Neutrophils Absolute Auto 4300 /uL (1500-7000); Neutrophils Percent Auto 57.9 % (50-75); Platelet Count 260 X10^3/uL (150-400); Red Blood Cell Count 5.17 X10^6/uL (4.5-5.9); Red Cell Distribution Width 13.5 % (11.6-14.8); White Blood Cell Count 7.4 X10^3/uL (4.5-11.0)
[2019-06-15 13:30] VITALS: BP 131/78; PULSE 59; RESP 19; O2SAT 98
[2019-06-15 13:32] LABS: Prothrombin Time 11.6 SECONDS (10.1-12.7)
--- NOTE | 2019-06-15 13:34 | ED.NEUROSD ---
HPI - Neuro Symptoms/Deficit General Chief Complaint: Neuro Symptoms/Deficit Stated Complaint: tingling left arm, vision on left side went bad Time Seen by Provider: 06/15/19 13:07 Source: patient Mode of arrival: Ambulatory Limitations: no limitations History of Present Illness HPI Narrative: 68-year-old male with a history of hypothyroidism otherwise no other reported medical problems here for evaluation of an episode that occurred prior to arrival here in the ER. He states that he had blurry vision in his left eye. He states that he did not lose vision in the eye just became blurry. He also states that during the time he had some tingling to his left hand. In triage he stated that he had some tingling to left side of his face during this time but he did not report that to me. No other associated symptoms. The symptoms lasted less than 10 minutes and then completely resolved. He has never had anything like this in the past. Has not take anything for symptoms prior to arrival On Anticoagulants: No Related Data Home Medications Medication Instructions Recorded Confirmed Lactobacillus acidophilus 1 tab PO QDAY #0 09/24/16 [vitamin a ] 10,000 mg PO QDAY #0 09/24/16 ascorbic acid (vitamin C) 2,000 mg PO QDAY #0 09/24/16 calcium carbonate 1 tab PO QDAY #0 09/24/16 cholecalciferol (vitamin D3) 5,000 PO QDAY #0 09/24/16 multivitamin [Multiple Vitamins] 1 tab PO QDAY #0 09/24/16 selenium 100 mcg PO QDAY #0 09/24/16 thyroid (pork) [Nature-Throid] 81.25 mg PO QDAY #0 09/24/16 Allergies Allergy/AdvReac Type Severity Reaction Status Date / Time No Known Drug Allergies Allergy Verified 06/15/19 13:16 Review of Systems Constitutional Constitutional: Denies fever(s), Denies headache(s) and Denies weakness Eyes Comments: Blurry vision left eye that is now resolved no right eye symptoms ENT Ears, Nose, Mouth, and Throat: Denies vertigo, Denies dizziness, Denies facial pain, Denies headache(s), Denies neck pain, Denies disequilibrium and Denies sore throat Cardiovascular Cardiovascular: Denies chest pain and Denies dyspnea Respiratory Respiratory: Denies cough and Denies dyspnea Gastrointestinal Gastrointestinal: Denies abdominal pain, Denies nausea and Denies vomiting Genitourinary Genitourinary: Denies dysuria Musculoskeletal Musculoskeletal: Denies myalgias, Denies arthralgias, Denies neck pain and Reports tingling Integumentary/Breasts Skin/Breast: Denies lesions and Denies rash Neurologic Neurologic: Denies vertigo, Denies dizziness, Denies headache(s), Reports tingling, Denies disequilibrium and Denies weakness Hematologic/Lymphatic Hematologic/Lymphatic: Denies easy bleeding and Denies easy bruising Patient History Medical History Hypothyroid (Acute) Social History Smoking Status: Never smoker alcohol intake frequency: 0-2 drinks per day Substance Use Type: does not use Exam Initial Vital Signs Initial Vital Signs: Vital Signs Temperature 97.8 F 06/15/19 13:00 Pulse Rate 65 06/15/19 13:00 Respiratory Rate 14 06/15/19 13:00 Blood Pressure 149/78 H 06/15/19 13:00 Pulse Oximetry 100 06/15/19 13:00 Const General: cooperative, healthy appearing, comfortable, well developed and well groomed Orientation: alert, awake and oriented x3 HENMT Head: normal to inspection and normocephalic Ears: TM normal on the right Throat: posterior oropharynx normal Eyes Pupils: PERRL EOM: EOM intact bilaterally Resp Effort & Inspection: normal respiratory effort Auscultation: clear to auscultation bilaterally Cardio Rate: regular rate Rhythm: regular rhythm GI Inspection: non-distended Palpation: soft, No firm and No tender Skin Lesions: no lesions Rashes: no rashes Neuro General: alert, awake and oriented x3 Cranial Nerves: CN's II-XI intact bilaterally Cognition: normal cognition Speech: speech normal Gait: normal gait Motor: muscle tone normal throughout Sensory Exam: no sensory deficits noted Coordination: [id number] test normal Extrem General: normal to inspection and capillary refill normal Psych Appearance: grossly normal and well kempt Scores ABCD2 Age >= 60 years: yes Initial BP. Either SBP >= 140 or DBP >= 90.: yes Clinical features of the TIA: other symptoms Duration of symptoms: 10-59 minutes History of diabetes: no ABCD2 Score: 3 GCS [place] coma scale eye opening: Spontaneous [place] coma scale verbal response: Orientated [place] coma scale motor response: Obey commands [place] coma scale total score: 15 NIH Stroke Scale Level of Conciousness: Alert, keenly responsive Ask month/age: Answers both questions correctly. Open/close eyes, close hand: Performs both tasks correctly Best gaze horizontal: Normal Visual chen: No visual loss Facial palsy: Normal symetrical movement Left arm drift: No drift for full 10 sec Right arm drift: No drift for full 10 sec Left leg drift: No drift for full 10 sec Right leg drift: No drift for full 10 sec Limb ataxia: Absent Sensory on face/arms/legs: Normal, no sensory loss Best language: No aphasia, normal Dysarthria: Normal Extinction or inattention: No abnormality Total NIH Stroke scale score: 0 Course Orders Ordered: ED Orders 06/15/19 13:08 EKG-12 Lead Stat 06/15/19 13:09 CT head/brain wo con Stat 06/15/19 13:18 Complete Blood Count AUTO DIFF Stat Comprehensive Metabolic Panel Stat Lipase Stat Partial Thromboplastin Time Stat Prothrombin Time INR Stat Thyroid Stimulating Hormone Stat Troponin I Stat Vital Signs Vital signs: Vital Signs - 8 hr 06/15/19 13:00 06/15/19 13:30 06/15/19 13:45 Temperature 97.8 F Pulse Rate 65 59 L 59 L Respiratory Rate 14 19 18 Blood Pressure 149/78 H Blood Pressure [Right Arm] 131/78 141/78 H Pulse Oximetry 100 98 96 06/15/19 14:39 Temperature Pulse Rate 58 L Respiratory Rate 19 Blood Pressure Blood Pressure [Right Arm] 113/85 Pulse Oximetry 98 MDM - Neuro Symptoms/Deficit Lab Data Attestation: I reviewed the patient's lab results. Result diagrams: 06/15/19 13:18 06/15/19 13:18 Labs: Lab Results 06/15/19 06/15/19 06/15/19 Range/Units 13:18 13:18 13:18 WBC 7.4 (4.5-11.0) X10^3/uL RBC 5.17 (4.5-5.9) X10^6/uL Hgb 16.5 (13.5-17.5) g/dL Hct 48.0 (41-53) % MCV 92.8 (80-100) fL MCH 31.9 (26-34) PG MCHC 34.3 (30-36) % RDW 13.5 (11.6-14.8) % Plt Count 260 (150-400) X10^3/uL Neut % (Auto) 57.9 (50-75) % Lymph % (Auto) 28.8 (25-40) % Green % (Auto) 10.0 (3-14) % Eos % (Auto) 2.5 (2-4) % Baso % (Auto) 0.8 (0-2) % Neut # (Auto) 4300 (5557-2663) /uL Lymph # (Auto) 2100 (6172-2801) /uL Green # (Auto) 700 (0-900) /uL Eos # (Auto) 200 (0-450) /uL Baso # (Auto) 100 (0-100) /uL PT 11.6 (10.1-12.7) SECONDS INR 1.0 (0.9-1.3) APTT 30 (26.4-36.2) SECONDS Sodium 142 (137-145) mmol/L Potassium 4.0 (3.4-5.1) mmol/L Chloride 103 (98-107) mmol/L Carbon Dioxide 26 (22-32) mmol/L BUN 18 (9-20) mg/dL Creatinine 0.90 (0.66-1.25) mg/dL Estimated GFR > 60.0 (>60) mL/min BUN/Creatinine Ratio 20.0 (6-22) Glucose 98 (80-110) mg/dL Calcium 10.4 H (8.4-10.2) mg/dL Total Bilirubin 0.8 (0.2-1.3) mg/dL AST 34 (17-59) IU/L ALT 28 (21-72) IU/L Alkaline Phosphatase 105 (38-126) U/L Troponin I < 0.012 (0.01-0.034) ng/mL Total Protein 8.9 H (6.3-8.2) g/dL Albumin 5.0 (3.5-5.0) g/dL Globulin 3.9 (1.7-4.1) g/dL Albumin/Globulin Ratio 1.3 (1.0-2.8) Lipase 76 (23-300) U/L TSH (0.47-4.68) uIU/mL 06/15/19 Range/Units 13:18 WBC (4.5-11.0) X10^3/uL RBC (4.5-5.9) X10^6/uL Hgb (13.5-17.5) g/dL Hct (41-53) % MCV (80-100) fL MCH (26-34) PG MCHC (30-36) % RDW (11.6-14.8) % Plt Count (150-400) X10^3/uL Neut % (Auto) (50-75) % Lymph % (Auto) (25-40) % Green % (Auto) (3-14) % Eos % (Auto) (2-4) % Baso % (Auto) (0-2) % Neut # (Auto) (2912-6461) /uL Lymph # (Auto) (7664-4808) /uL Green # (Auto) (0-900) /uL Eos # (Auto) (0-450) /uL Baso # (Auto) (0-100) /uL PT (10.1-12.7) SECONDS INR (0.9-1.3) APTT (26.4-36.2) SECONDS Sodium (137-145) mmol/L Potassium (3.4-5.1) mmol/L Chloride (98-107) mmol/L Carbon Dioxide (22-32) mmol/L BUN (9-20) mg/dL Creatinine (0.66-1.25) mg/dL Estimated GFR (>60) mL/min BUN/Creatinine Ratio (6-22) Glucose (80-110) mg/dL Calcium (8.4-10.2) mg/dL Total Bilirubin (0.2-1.3) mg/dL AST (17-59) IU/L ALT (21-72) IU/L Alkaline Phosphatase (38-126) U/L Troponin I (0.01-0.034) ng/mL Total Protein (6.3-8.2) g/dL Albumin (3.5-5.0) g/dL Globulin (1.7-4.1) g/dL Albumin/Globulin Ratio (1.0-2.8) Lipase (23-300) U/L TSH 1.81 (0.47-4.68) uIU/mL Imaging Data CT scan - head: Radiologist's impression: [address] [address] [address] Scan Report Signed Patient: Alvaro Mantilla FMR#: [id number] : 9Acct:[id number] Age/Sex: 68 / MDate of Service: 06/15/19 Loc: ED Accession Number: [id number] Procedure: CT head/brain wo con Ordering Provider: Haris Jones D.O. PROCEDURE: CT HEAD/BRAIN WO CON INDICATIONS: Blurry vision in left eye. Left arm tingling TECHNIQUE: Noncontrast 4.5 mm thick angled axial sections acquired from the foramen magnum to the vertex, with coronal and sagittal reformats. For radiation dose reduction, the following was used: automated exposure control, adjustment of mA and/or kV according to patient size. COMPARISON: None. FINDINGS: Image quality: Excellent. CSF spaces: Basal cisterns are patent. No extra-axial fluid collections. The ventricles are symmetric in size and shape. 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 Brain: No intracranial bleeds or masses. There is cerebral volume loss for age, with resultant ventricular and sulcal prominence. There are periventricular and deep white matter chronic small vessel ischemic changes. There is intracranial internal carotid artery atherosclerosis. Skull and face: Calvarium and visualized facial bones appear intact, without suspicious lesions. Sinuses: Visualized sinuses and mastoids are clear. IMPRESSION: 1. No acute intracranial abnormalities. Dictated by: Laurent Pak M.D. on 06/15/2019 at 13:29 Approved by: Laurent Pak M.D. on 06/15/2019 at 13:31 ECG Data Attestation: I personally reviewed and interpreted this ECG as follows: Prior ECG tracings: not available for review Interpretation: Sinus bradycardia Ventricular rate of 57 Normal axis Normal QRS Normal QTC No ST T wave changes MDM Narrative Medical decision making narrative: Patient is asymptomatic upon arrival. NIH score of 0. Has a normal neurologic exam. Normal head CT. Unremarkable EKG. Unremarkable labs. Has a ABCD2 score that is low risk. He had an initial systolic blood pressure of 141 upon arrival which did give him a point in the score however since that initial blood pressure his systolic blood pressures have been in the 120s. His states that normally his blood pressure is in the 120s to 130s. Patient is unsure if the symptoms lasted under 10 minutes. He states that it potentially was under 10 minutes however he is fairly certain that it lasted less than 15 minutes. If it did last less than 10 minutes this would even give him a lower ABCD2 score. Given his symptoms there is some concern about a TIA. Low suspicion for CVA. I did discuss the case with Dr. Bradley who is on-call for the patient's primary provider who stated that they would be able to follow the patient up the beginning of next week for further workup of his symptoms. Will start the patient on a full-dose aspirin. He states he will start taking this at home. We discussed return precautions and follow-up instructions. He expressed understanding and agreement with plan. Discharge Plan Departure Patient Disposition: Home Clinical Impression: Transient cerebral ischemia Qualifiers: Transient cerebral ischemia type: unspecified Qualified Code(s): G45.9 - Transient cerebral ischemic attack, unspecified Discharge Date/Time: 06/15/19 14:55 Instructions: DI for Transient Ischemic Attack Activity Restrictions/Additional Instructions: Recommend on Tuesday you call the [facility] at [phone] to follow up with 1 of their providers at the beginning of next week. I also recommend you start taking 324 mg aspirin on a daily basis. Return to the emergency department for any new or worsening symptoms. Continue all of her medications as directed. Prescriptions: No Action multivitamin [Multiple Vitamins] 1 EACH tablet 1 tab PO QDAY Qty: 0 RF: 0 calcium carbonate 500 MG tablet 1 tab PO QDAY Qty: 0 RF: 0 ascorbic acid (vitamin C) 500 MG tablet 2,000 mg PO QDAY Qty: 0 RF: 0 selenium 200 MCG tablet 100 mcg PO QDAY Qty: 0 RF: 0 cholecalciferol (vitamin D3) 10,000 UNIT tablet 5,000 PO QDAY Qty: 0 RF: 0 [vitamin a ] 10,000 mg PO QDAY Qty: 0 RF: 0 Lactobacillus acidophilus 1 EACH capsule 1 tab PO QDAY Qty: 0 RF: 0 thyroid (pork) [Nature-Throid] 81.25 MG tablet 81.25 mg PO QDAY Qty: 0 RF: 0
[2019-06-15 13:35] LABS: PTT Partial Thromboplastin Tim 30 SECONDS (26.4-36.2)
[2019-06-15 13:40] LABS: Alanine Aminotransferase 28 IU/L (21-72); Albumin Globulin Ratio 1.3 (1.0-2.8); Alkaline Phosphatase 105 U/L (38-126); Aspartate Aminotransferase 34 IU/L (17-59); Bilirubin Total 0.8 mg/dL (0.2-1.3); Blood Urea Nitrogen 18 mg/dL (9-20); Calcium 10.4 mg/dL (8.4-10.2); Carbon Dioxide 26 mmol/L (22-32); Chloride 103 mmol/L (98-107); Estimated Glomerular Filt Rate > 60.0 mL/min (>60); Globulin 3.9 g/dL (1.7-4.1); Glucose 98 mg/dL (80-110); HEMOLYSIS < 15 (0-50); Lipase 76 U/L (23-300); Sodium 142 mmol/L (137-145); Total Protein 8.9 g/dL (6.3-8.2)
[2019-06-15 13:45] VITALS: BP 141/78; PULSE 59; RESP 18; O2SAT 96
[2019-06-15 13:50] LABS: Troponin I < 0.012 ng/mL (0.01-0.034)
[2019-06-15 14:10] LABS: Thyroid Stimulating Hormone 1.81 uIU/mL (0.47-4.68)
[2019-06-15 14:39] VITALS: BP 113/85; PULSE 58; RESP 19; O2SAT 98
== END 2019-06-15 14:55 | disposition home or self-care (01) ==
PROVIDERS: Emergency Provider Emergency Medicine
DX: G45.9 Transient cerebral ischemic attack, unspecified (principal); R00.1 Bradycardia, unspecified
CPT/HCPCS: 36415; 70450; 80053; 83690; 84443; 84484; 85025; 85610; 85730; 93005; 99283; 99285

== ENCOUNTER 2019-06-19 18:12 | Observation (INO) | payer OTHER, SELFPAY ==
[2019-06-19 18:15] VITALS: BP 159/84; PULSE 61; RESP 16; TEMP 36.9; O2SAT 100
--- NOTE | 2019-06-19 18:22 | DI.CT.S_ITS ---
PROCEDURE: CT HEAD/BRAIN WO CON INDICATIONS: Stroke symptoms TECHNIQUE: Noncontrast 4.5 mm thick angled axial sections acquired from the foramen magnum to the vertex, with coronal and sagittal reformats. For radiation dose reduction, the following was used: automated exposure control, adjustment of mA and/or kV according to patient size. COMPARISON: [facility], CT, CT HEAD/BRAIN WO CON, 06/15/2019, 13:18. FINDINGS: Image quality: Excellent. CSF spaces: Basal cisterns are patent. No extra-axial fluid collections. The ventricles are symmetric in size and shape. Brain: No intracranial bleeds or masses. There is cerebral volume loss for age, with resultant ventricular and sulcal prominence. There are periventricular and deep white matter chronic small vessel ischemic changes. There is intracranial internal carotid artery atherosclerosis. Skull and face: Calvarium and visualized facial bones appear intact, without suspicious lesions. Sinuses: Visualized sinuses and mastoids are clear. IMPRESSION: No acute intracranial process. Dictated by: Naveen Gurrola M.D. on 06/19/2019 at 18:49 Approved by: Naveen Gurrola M.D. on 06/19/2019 at 18:53
[2019-06-19 18:38] LABS: Add Manual Diff / Slide Review NO; Basophils Absolute Auto 100 /uL (0-100); Basophils Percent Auto 0.7 % (0-2); Eosinophils Absolute Auto 200 /uL (0-450); Hematocrit 44.1 % (41-53); Hemoglobin 15.1 g/dL (13.5-17.5); Lymphocytes Absolute Auto 2800 /uL (1100-4500); Lymphocytes Percent Auto 33.1 % (25-40); Mean Corpuscular HGB Conc 34.3 % (30-36); Mean Corpuscular Hemoglobin 31.7 PG (26-34); Mean Corpuscular Volume 92.6 fL (80-100); Monocytes Absolute Auto 800 /uL (0-900); Monocytes Percent Auto 9.8 % (3-14); Neutrophils Absolute Auto 4700 /uL (1500-7000); Neutrophils Percent Auto 54.4 % (50-75); Platelet Count 272 X10^3/uL (150-400); Red Blood Cell Count 4.77 X10^6/uL (4.5-5.9); Red Cell Distribution Width 13.1 % (11.6-14.8); White Blood Cell Count 8.6 X10^3/uL (4.5-11.0)
[2019-06-19 18:39] LABS: INR 1.1 (0.9-1.3); Prothrombin Time 12.1 SECONDS (10.1-12.7)
[2019-06-19 18:42] LABS: PTT Partial Thromboplastin Tim 28 SECONDS (26.4-36.2)
[2019-06-19 18:44] LABS: Blood Urea Nitrogen 18 mg/dL (9-20); Calcium 9.9 mg/dL (8.4-10.2); Carbon Dioxide 23 mmol/L (22-32); Chloride 106 mmol/L (98-107); Estimated Glomerular Filt Rate 59.9 mL/min (>60); Glucose 99 mg/dL (80-110); Sodium 138 mmol/L (137-145)
[2019-06-19 18:45] LABS: HEMOLYSIS 84 (0-50)
[2019-06-19 18:46] LABS: Potassium 4.5 mmol/L (3.4-5.1)
[2019-06-19 18:48] VITALS: BP 129/101; PULSE 55; O2SAT 99
--- NOTE | 2019-06-19 19:27 | ED_ITS ---
HPI - Neuro Symptoms/Deficit General Chief Complaint: Neuro Symptoms/Deficit Stated Complaint: thinks he is having another TIA Time Seen by Provider: 06/19/19 18:14 Source: patient Mode of arrival: Ambulatory Limitations: no limitations History of Present Illness HPI Narrative: 68-year-old male nonsmoker with history of hypothyroidism presents with his in the chief complaint of a series of neurologic symptoms that started suddenly at about 17 40 tonight. Patient activated as code stroke and taken directly to CT. His symptoms included some difficulty with speech in finding words as well as tingling on the right side of his face and right hand, he states that his hand may have been weak or just tingly in that it is hard for him to tell. His symptoms had started improving prior to his arrival, he took a full-dose aspirin prior to his arrival. He denies any injury nor fever or chills. He was seen and evaluated few days ago under relatively similar circumstances but given his low ABCD2 score he was sent home with close follow- up arranged. He had seen his PCP earlier today. His symptoms a few days ago were of blurry vision in his left eye and some tingling in his left hand. He denies any other perceived neurologic findings. Onset (ago): hour(s) Location: speech, right face and right arm History of same: Yes Severity: mild Quality: numb and tingling Relieving factors: time Exacerbating factors: none Context: sudden onset On Anticoagulants: No (asa) Associated symptoms: denies other symptoms Treatments Prior to Arrival: Aspirin Related Data Home Medications Medication Instructions Recorded Confirmed Lactobacillus acidophilus 1 tab PO QDAY #0 09/24/16 [vitamin a ] 10,000 mg PO QDAY #0 09/24/16 ascorbic acid (vitamin C) 2,000 mg PO QDAY #0 09/24/16 calcium carbonate 1 tab PO QDAY #0 09/24/16 cholecalciferol (vitamin D3) 5,000 PO QDAY #0 09/24/16 multivitamin [Multiple Vitamins] 1 tab PO QDAY #0 09/24/16 selenium 100 mcg PO QDAY #0 09/24/16 thyroid (pork) [Nature-Throid] 81.25 mg PO QDAY #0 09/24/16 Allergies Allergy/AdvReac Type Severity Reaction Status Date / Time No Known Drug Allergies Allergy Verified 06/15/19 13:16 Review of Systems Constitutional Constitutional: Denies chills, Denies fatigue, Denies fever(s), Denies frequent falls, Denies lethargy and Denies weakness Eyes Eyes: Denies change in vision, Denies eye discharge, Denies irritation and Denies loss of vision ENT Ears, Nose, Mouth, and Throat: Denies change in voice, Denies dizziness, Denies neck pain, Denies sore throat and Denies throat swelling Cardiovascular Cardiovascular: Denies chest pain, Denies irregular heart rhythm, Denies lightheadedness, Denies palpitations, Denies dyspnea, Denies dyspnea on exertion and Denies orthopnea Respiratory Respiratory: Denies cough, Denies dyspnea, Denies dyspnea on exertion and Denies wheezing Gastrointestinal Gastrointestinal: Denies abdominal pain, Denies change in bowel habits, Denies diarrhea, Denies nausea and Denies vomiting Genitourinary Genitourinary: Denies hematuria, Denies flank pain, Denies urinary incontinence and Denies urinary urgency Musculoskeletal Musculoskeletal: Denies back pain, Denies muscle weakness, Denies neck pain, Reports numbness and Reports tingling Integumentary/Breasts Skin/Breast: Denies pruritus, Denies erythema, Denies rash and Denies wounds Neurologic Neurologic: Denies behavioral changes, Denies confusion, Denies dizziness, Denies frequent falls, Denies loss of vision, Reports numbness, Reports tingling, Reports paresthesias and Denies weakness Psychiatric Psychiatric: Denies anxiety, Denies behavioral changes, Denies confusion, Denies depression, Denies homicidal ideation and Denies suicidal ideation Endocrine Endocrine: Denies fatigue, Denies flushing and Denies palpitations Hematologic/Lymphatic Hematologic/Lymphatic: Denies easy bruising Allergic/Immunologic Allergic/Immunologic: Denies urticaria, Denies throat swelling and Denies wheezing Patient History Medical History Hypothyroid (Acute) Social History household members: spouse Smoking Status: Never smoker alcohol intake frequency: 0-2 drinks per day Substance Use Type: does not use Exam Narrative Exam Narrative: GENERAL: [68] year old patient appears stated age. Well- nourished, well-developed patient, in mild distress. HEAD: Atraumatic. Normocephalic. EYES: Pupils equal round and reactive. Extraocular motions intact. No scleral icterus. No injection or drainage. ENT: Nose without bleeding, purulent drainage. Throat without erythema, tonsillar hypertrophy or exudate. Airway patent. NECK: Trachea midline. Non tender CARDIOVASCULAR: Regular rate and rhythm without murmurs, gallops, or rubs. RESPIRATORY: Clear to auscultation. Breath sounds equal bilaterally. No wheezes, rales, or rhonchi. GASTROINTESTINAL: Abdomen soft, non-tender, nondistended. EXTREMITIES: No edema or joint tenderness. BACK: Nontender without deformity or crepitance. No flank tenderness. NEURO: AOx3. SKIN: No rash or erythema of visible areas NIH Stroke Scale 1a. LOC: Patient is alert and keenly responsive (0) 1b. LOC Questions: Patient answers both LOC questions accurately (0) 1c. LOC Commands: Patient performs both tasks correctly (0) 2. Best Gaze: Normal (0) 3. Visual: No visual loss (0) 4. Facial palsy: Normal symmetrical movements (0) 5. Motor arm: No drift (0) 6. Motor leg: No drift (0) 7. Limb ataxia: Absent (0) 8. Sensory: Normal (0) 9. Best language: No aphasia; normal (0) 10. Dysarthria: Normal (0) 11. Extinction and inattention: No abnormality (0) NIHSS: 0 Initial Vital Signs Initial Vital Signs: Vital Signs Temperature 98.4 F 06/19/19 18:15 Pulse Rate 61 06/19/19 18:15 Respiratory Rate 16 06/19/19 18:15 Blood Pressure 159/84 H 06/19/19 18:15 Pulse Oximetry 100 06/19/19 18:15 Course Orders Ordered: ED Orders 06/19/19 20:03 EC echo doppler complete Stat 06/20/19 06:00 Basic Metabolic Panel Stat Complete Blood Count AUTO DIFF Stat 06/20/19 07:00 MR stroke Stat Acetaminophen (Tylenol) 650 mg PO Q6HR PRN PRN Reason: As Needed for Fever/Mild Pain Nf - Thyroid (Nature (-Throid) 81.25 Mg) 81.25 mg PO 0600 HANANE Discontinued Medications Sodium Chloride (Normal Saline 0.9%) 1,000 mls @ 150 mls/hr IV CONT HANANE Last Admin: 06/19/19 22:21 Dose: Not Given Documented by: KENJI Vital Signs Vital signs: Vital Signs - 8 hr 06/19/19 18:15 06/19/19 18:48 Temperature 98.4 F Pulse Rate 61 55 L Respiratory Rate 16 Blood Pressure 159/84 H Blood Pressure [Right Arm] 129/101 H Pulse Oximetry 100 99 MDM - Neuro Symptoms/Deficit Lab Data Result diagrams: 06/19/19 18:25 06/19/19 18:25 Labs: Lab Results 06/19/19 06/19/19 06/19/19 Range/Units 18:25 18:25 18:25 WBC 8.6 (4.5-11.0) X10^3/uL RBC 4.77 (4.5-5.9) X10^6/uL Hgb 15.1 (13.5-17.5) g/dL Hct 44.1 (41-53) % MCV 92.6 (80-100) fL MCH 31.7 (26-34) PG MCHC 34.3 (30-36) % RDW 13.1 (11.6-14.8) % Plt Count 272 (150-400) X10^3/uL Neut % (Auto) 54.4 (50-75) % Lymph % (Auto) 33.1 (25-40) % [place] % (Auto) 9.8 (3-14) % Eos % (Auto) 2.0 (2-4) % Baso % (Auto) 0.7 (0-2) % Neut # (Auto) 4700 (8302-9069) /uL Lymph # (Auto) 2800 (6382-4197) /uL [place] # (Auto) 800 (0-900) /uL Eos # (Auto) 200 (0-450) /uL Baso # (Auto) 100 (0-100) /uL PT 12.1 (10.1-12.7) SECONDS INR 1.1 (0.9-1.3) APTT 28 D (26.4-36.2) SECONDS Sodium 138 (137-145) mmol/L Potassium 4.5 (3.4-5.1) mmol/L Chloride 106 (98-107) mmol/L Carbon Dioxide 23 (22-32) mmol/L BUN 18 (9-20) mg/dL Creatinine 1.20 (0.66-1.25) mg/dL Estimated GFR 59.9 L (>60) mL/min BUN/Creatinine Ratio 15.0 (6-22) Glucose 99 (80-110) mg/dL Calcium 9.9 (8.4-10.2) mg/dL TSH (0.47-4.68) uIU/mL Free T4 (0.78-2.19) ng/dL 06/19/19 06/19/19 Range/Units 18:25 18:25 WBC (4.5-11.0) X10^3/uL RBC (4.5-5.9) X10^6/uL Hgb (13.5-17.5) g/dL Hct (41-53) % MCV (80-100) fL MCH (26-34) PG MCHC (30-36) % RDW (11.6-14.8) % Plt Count (150-400) X10^3/uL Neut % (Auto) (50-75) % Lymph % (Auto) (25-40) % [place] % (Auto) (3-14) % Eos % (Auto) (2-4) % Baso % (Auto) (0-2) % Neut # (Auto) (2471-9558) /uL Lymph # (Auto) (0353-1922) /uL [place] # (Auto) (0-900) /uL Eos # (Auto) (0-450) /uL Baso # (Auto) (0-100) /uL PT (10.1-12.7) SECONDS INR (0.9-1.3) APTT (26.4-36.2) SECONDS Sodium (137-145) mmol/L Potassium (3.4-5.1) mmol/L Chloride (98-107) mmol/L Carbon Dioxide (22-32) mmol/L BUN (9-20) mg/dL Creatinine (0.66-1.25) mg/dL Estimated GFR (>60) mL/min BUN/Creatinine Ratio (6-22) Glucose (80-110) mg/dL Calcium (8.4-10.2) mg/dL TSH 3.21 D (0.47-4.68) uIU/mL Free T4 0.72 L (0.78-2.19) ng/dL Imaging Data CT scan - head: Radiologist's impression: [place] [id number] [place] [id number] Scan Report Signed Patient: Alvaro Mantilla FMR#: [id number] : 9Acct:[id number] Age/Sex: 68 / MDate of Service: 06/19/19 Loc: ED Accession Number: [id number] Procedure: CT head/brain wo con Ordering Provider: Bryon Nguyen D.O. PROCEDURE: CT HEAD/BRAIN WO CON INDICATIONS: Stroke symptoms TECHNIQUE: Noncontrast 4.5 mm thick angled axial sections acquired from the foramen magnum to the vertex, with coronal and sagittal reformats. For radiation dose reduction, the following was used: automated exposure control, adjustment of mA and/or kV according to patient size. COMPARISON: [facility], CT, CT HEAD/BRAIN WO CON, 06/15/2019, 13:18. FINDINGS: Image quality: Excellent. CSF spaces: Basal cisterns are patent. No extra-axial fluid collections. The ventricles are symmetric in size and shape. Brain: No intracranial bleeds or masses. There is cerebral volume loss for age, with resultant ventricular and sulcal prominence. There are periventricular and deep white matter chronic small vessel ischemic changes. There is intracranial internal carotid artery atherosclerosis. Skull and face: Calvarium and visualized facial bones appear intact, without suspicious lesions. Sinuses: Visualized sinuses and mastoids are clear. IMPRESSION: No acute intracranial process. Dictated by: Naveen Gurrola M.D. on 06/19/2019 at 18:49 Approved by: Naveen Gurrola M.D. on 06/19/2019 at 18:53 ECG Data Attestation: I personally reviewed and interpreted this ECG as follows: Interpretation: EKG is bradycardic sinus rhythm rate [55 ] and free of any signs of ischemia or ectopy. No ST segmental elevation or depression. No T wave inversions Discharge Plan Departure Patient Disposition: Admitted as Observation Clinical Impression: Transient cerebral ischemia Discharge Date/Time: 06/19/19 20:00 Admit Date/Time: 06/19/19 20:00 Admit Provider: Sammi Bradley
[2019-06-19 19:54] VITALS: BP 129/71; PULSE 59; RESP 14; O2SAT 99
--- NOTE | 2019-06-19 20:03 | DI.ECHO.S_ITS ---
[facility]---------+ [facility] +---------+ : : [address] : : : : [id number] : : : : Phone: [phone]+ Echocardiogram Report + + :Name: CONSTANZA SWIFT Study Date: 06/20/2019 Height: 68 in : :[facility] Weight: 191 lb : : Gender: Male BSA: 2.0 m2 : :: 1950 Age: 68 yrs BP: 131/80 mmHg: :Reason For Study: STROKE : : Performed By: Vasu Sood : :Referring: SILVER NAIDU : + + Interpretation Summary The left ventricle is normal in size, wall thickness, and systolic function without any focal wall motion abnormalities with the ejection fraction visually estimated to be 60-65%. Diastolic parameters suggest probable normal left ventricular diastolic function and normal filling pressures. The right ventricle is normal in size and function. Pulmonary artery pressures cannot be estimated because of the lack of a measurable TR jet velocity but the IVC suggests a CVP of around 3 mmHg. Both atria are normal in size. The aortic valve is slightly calcified with mild aortic regurgitation but there is no other significant valvular heart disease. Procedure: A two-dimensional transthoracic echocardiogram with color flow and Doppler was performed. The study quality was technically adequate. There is no prior echocardiogram noted for this patient. The patient was in normal sinus rhythm during the exam. Left Ventricle: The left ventricle is normal in size, wall thickness, and systolic function without any focal wall motion abnormalities. The ejection fraction is estimated to be 60-65%. Diastolic parameters suggest probable normal left ventricular diastolic function and normal filling pressures. Right Ventricle: The right ventricle is normal in size and function. Atria: Both atria are normal in size. The interatrial septum is intact with no evidence for an atrial septal defect. Mitral Valve: The mitral valve is normal in structure and function. There is no mitral regurgitation. Aortic Valve: The aortic valve is trileaflet. The aortic valve is slightly calcified. The aortic valve opens well. There is mild aortic regurgitation. Tricuspid Valve: The tricuspid valve is normal in structure and function. There is a trace or physiologic amount of tricuspid regurgitation. Pulmonary artery pressures cannot be estimated because of the lack of a measurable TR jet velocity but the IVC suggests a CVP of around 3 mmHg. Pulmonic Valve: The pulmonic valve is normal in structure and function. There is trace pulmonic regurgitation. There is no other significant valvular heart disease. Great Vessels: The aortic root is normal size. The dimensions of the ascending aorta are normal. The pulmonary artery is normal size. The IVC is of normal diameter and collapses greater than 50% with a sniff. This suggests a low right atrial pressure of 3 mm Hg. Pericardium/ Pleura There is no pericardial effusion. There is no pleural effusion. MMode/2D Measurements & Calculations LVIDd: 4.1 cm LVOT diam: 2.0 cm LVIDs: 3.1 cm Ao root diam: 3.0 cm FS: 24.0 % Aortic Jxn: 2.5 cm EPSS: 1.0 cm asc Aorta Diam: 2.9 cm IVSd: 0.84 cm LVPWd: 1.0 cm LV light. diameter/BSA (cm/m^2): 2.1 LV sys. diameter/BSA (cm/m^2): 1.6 LA dimension: 2.9 cm RA long axis: 4.9 cm LA A2 area: 15.3 cm2 RA area: 18.9 cm2 LA A4 area: 11.9 cm2 RA vol: 61.9 ml LA length (vol): 4.5 cm RA : 30.9 ml/m2 LA vol: 34.8 ml IVC diam: 0.89 cm LA vol index: 17.3 ml/m2 RVD1 (basal): 3.7 cm RVD2 (mid): 3.6 cm Doppler Measurements & Calculations Ao V2 max: 135.7 cm/sec LVOT Max Shree: 106.4 cm/sec Ao V2 mean: 93.0 cm/sec LV V1 max P.5 mmHg Ao max P.4 mmHg LV V1 VTI: 23.5 cm Ao mean P.8 mmHg JACE(I,D): 2.9 cm2 Ao V2 VTI: 25.8 cm JACE(V,D): 2.5 cm2 sev ratio: 0.91 JACE indexed to BSA (cm^2/m^2): 1.5 MV E max shree: 51.5 cm/sec PA V2 max: 79.2 cm/sec MV A max shree: 54.6 cm/sec PA V2 mean: 56.9 cm/sec MV E/A: 0.94 PA mean P.4 mmHg Med Peak E' Shree: 5.5 cm/sec PA pr(Accel): 21.6 mmHg E/E' med: 9.4 PA Accel Time: 0.12 sec Lat Peak E' Shree: 8.8 cm/sec E/E' lat: 5.9 E/e' average: 7.6 MV dec time: 0.24 sec [facility] 75.3 ml Reading Physician:LOUIS
[2019-06-19 20:25] VITALS: BP 131/80; PULSE 57; RESP 18; TEMP 36.1; O2SAT 100
[2019-06-19 20:37] VITALS: BMI 29.0
[2019-06-19 20:37] LABS: Free T4, Direct Thyroxine 0.72 ng/dL (0.78-2.19)
[2019-06-19 20:52] LABS: Thyroid Stimulating Hormone 3.21 uIU/mL (0.47-4.68)
--- NOTE | 2019-06-19 21:51 | PC.NURSE ---
Pt arrived on unit at approx 2024 from ED on a stretcher. VSS WNL, A and O x 4, asymptomatic but for small area of numbness next to R plane of nose. Denies pain, nausea and dizziness. Speech WNL. NIH = 0. MRI of brain scheduled for am. Pt's NF thyroid med in drawer for 0600 admin.
[2019-06-19 23:00] VITALS: BP 117/56; PULSE 66; RESP 16; TEMP 36.9; O2SAT 97
--- NOTE | 2019-06-20 02:51 | PC.NURSE ---
NOC note: Pt denies pain, reports that he has mild tingling in fingers but mostly feels he is at baseline. TELE in place and 0000 reading was SB.
[2019-06-20 05:00] VITALS: BP 128/61; PULSE 64; RESP 18; TEMP 37.1; O2SAT 99
[2019-06-20] MEDS: THYROID 81.25 MG 81.25 EACH PO (05:35)
[2019-06-20 06:02] LABS: Blood Urea Nitrogen 17 mg/dL (9-20); Calcium 9.6 mg/dL (8.4-10.2); Carbon Dioxide 27 mmol/L (22-32); Chloride 108 mmol/L (98-107); Estimated Glomerular Filt Rate > 60.0 mL/min (>60); Glucose 95 mg/dL (80-110); HEMOLYSIS 46 (0-50); Potassium 4.9 mmol/L (3.4-5.1); Sodium 141 mmol/L (137-145)
[2019-06-20 06:50] LABS: Add Manual Diff / Slide Review NO; Basophils Absolute Auto 100 /uL (0-100); Basophils Percent Auto 0.9 % (0-2); Eosinophils Absolute Auto 200 /uL (0-450); Eosinophils Percent Auto 2.8 % (2-4); Hematocrit 44.6 % (41-53); Hemoglobin 15.4 g/dL (13.5-17.5); Lymphocytes Absolute Auto 1700 /uL (1100-4500); Lymphocytes Percent Auto 24.6 % (25-40); Mean Corpuscular HGB Conc 34.4 % (30-36); Mean Corpuscular Hemoglobin 31.6 PG (26-34); Monocytes Absolute Auto 800 /uL (0-900); Monocytes Percent Auto 11.9 % (3-14); Neutrophils Absolute Auto 4100 /uL (1500-7000); Neutrophils Percent Auto 59.8 % (50-75); Platelet Count 222 X10^3/uL (150-400); Red Blood Cell Count 4.85 X10^6/uL (4.5-5.9); Red Cell Distribution Width 13.3 % (11.6-14.8); White Blood Cell Count 6.9 X10^3/uL (4.5-11.0)
--- NOTE | 2019-06-20 07:00 | DI.MRI.S_ITS ---
PROCEDURE: MR STROKE Pre- and post-contrast brain MRI, non-contrast brain MR angiogram, pre- and postcontrast neck MR angiogram INDICATIONS: stroke TECHNIQUE: Brain: Noncontrast axial T1 spin echo, axial T2 fast spin echo, sagittal and axial FLAIR, coronal T2 fast spin echo, axial gradient echo, axial diffusion and ADC through the brain. After the administration of contrast, axial 3D VIBE of the cranial vasculature and brain. Brain MRA: Non-contrast 3-D time of flight MR angiogram, with multiple ajymlft-ehdceyfry-rfpjlauphw (MIP) reformats performed. Neck MRA: Axial and sagittal TruFISP through the neck. Coronal dynamic MR angiogram during administration of contrast in the arterial and venous phases, with 3-dimenstional xlkbcfx-jshzvpkap-eyyspgjzik (MIP) reformats constructed from subtraction images. COMPARISON: [facility], CT, CT HEAD/BRAIN WO CON, 06/15/2019, 13:18. [facility], CT, CT HEAD/BRAIN WO CON, 06/19/2019, 18:28. FINDINGS: Image quality: Excellent. BRAIN: CSF spaces: There is mild cerebral volume loss with prominence of the ventricles and sulci. Basal cisterns are patent. There is a small right choroidal fissure cyst. Brain: Diffusion weighted images demonstrate no acute infarcts. No intracranial hemorrhage, mass, or mass effect. There are a few subcortical foci of white matter T2 hyperintensity consistent with minimal chronic small vessel ischemic changes. Brainstem appears normal. Normal intravascular flow voids are present. No abnormal intracranial enhancement. Skull and face: Calvarial marrow signal is normal. Orbits appear normal. Sinuses: Sinuses and mastoids are clear. BRAIN MR ANGIOGRAM: Anterior circulation: Intracranial internal carotid arteries are normal in size and patent bilaterally. The flow within the paired anterior cerebral arteries is symmetric and patent bilaterally. The flow within the middle cerebral arteries is symmetric and patent bilaterally. The anterior communicating artery is patent. No high-grade stenoses, occlusions, or aneurysms. Posterior circulation: The visualized portions of the vertebral arteries are patent and join to form a patent basilar artery. The flow within the posterior cerebral arteries is symmetric and patent bilaterally. No high-grade stenoses, occlusions, or aneurysms. NECK MR ANGIOGRAM: Carotids: Great vessels demonstrate conventional anatomy as they arise from the aortic arch. The origins of the common carotid arteries appear patent. The calibers and courses of both common carotid arteries are normal. The carotid bulbs appear widely patent. The internal carotid arteries demonstrate normal course and caliber. Posterior circulation: The origins of the vertebral arteries appear patent. More superior portions of both vertebral arteries demonstrate normal course and caliber, and join to form a normal appearing basilar artery. Miscellaneous: Subclavian arteries appear patent. Pre-contrast images through the neck demonstrate no soft tissue abnormalities. IMPRESSION: BRAIN MRI: 1. No infarct or other acute intracranial abnormality. 2. Mild cerebral volume loss and minimal chronic white matter small vessel ischemic changes. BRAIN MR ANGIOGRAM: 1. No high-grade stenosis or occlusion of the central intracranial arteries. NECK MR ANGIOGRAM: 1. No high-grade stenosis or occlusion of the head and neck arteries. The carotid bulbs appear widely patent. Dictated by: Vahid Chatterjee M.D. on 06/20/2019 at 11:34 Approved by: Vahid Chatterjee M.D. on 06/20/2019 at 11:49
[2019-06-20 07:42] VITALS: BP 122/76; PULSE 61; RESP 16; TEMP 36.8; O2SAT 99
--- NOTE | 2019-06-20 10:04 | CM.DANOTE ---
DCP: Case received, EMR reviewed and met with patient. Introduced self and role. Was able to meet with patient to obtain baseline health and activity information. DCP template/assessment completed with information currently available. Patient is a 68 year old male who admitted yesterday evening to the care of the hospitalist team. PCP: Dr. Bryant. Payer: confirmed: [facility]. Patient came to the hospital via family vehicle secondary to some neurological symptoms. Patient was noted to have some blurry vision. He currently holds diagnosis of TIA, but he will be having MRI today. Met with patient briefly in his room. Alert and oriented, pleasant. Patient resides here in [place] with his spouse, January. He is independent, retired, and drives. P: DCP to continue to follow. He will be having MRI today. Patient should be able to go home after tests, and when medically stable. Lis Guerra RN/Ticker Wirer
[2019-06-20 11:51] VITALS: BP 120/80; PULSE 65; RESP 21; TEMP 36.7; O2SAT 97
--- NOTE | 2019-06-20 13:13 | PM.HP.1 ---
History of Present Illness History of Present Illness Date Patient Seen: 06/20/19 Time Patient Seen: 13:13 Chief complaint: thinks he is having another TIA Narrative: This 68-year-old male is a former patient of Dr. Armando sayarnie and was seen in the clinic on date of admission 06/19/2019 for follow-up from the ER for suspected TIA. Patient is otherwise very healthy having only hypothyroidism for which he takes [place] Thyroid. He presented to the emergency department on June 15 with paresthesias and suspected possible TIA. He was normotensive with a negative CT and stable vital signs without any residual symptoms and a stroke scale of 0 and no focal neurologic deficits and he was discharged home to follow up with me yesterday. He followed up with me yesterday and neurologic exam was normal and MRI MRA stroke protocol was ordered for further evaluation and echo. Of course this was waiting approval from his health insurance. He then a couple hours later was driving to chicken picker his friend when he noted tingling on the right side of his face. Previously this had been on the left side of his face. He also was reversing SVT needed to give in front of his caodaism and he had some difficulty pronouncing the words which was unusual for him. He denied any loss of strength but did have paresthesias bilateral ulnar distribution of the upper extremities. No other concerns. He went back to the ER for evaluation and CT scan was negative. Stroke scale was 0-1 and labs were normal and there was no neurologic deficit but it was felt given the persistence that he needed to be admitted for further monitoring, treatment and workup. Overnight he has had no residual symptoms. He has had telemetry on has been sinus bradycardia. He has had echo and and MRI MRA stroke protocol. Past medical history: 1. Hypothyroidism for which he takes on her thyroid 2. Skiing accident where he injured his C1-C2. He received chiropractic treatment for this. This occurred in his mid 20s. He sees a chiropractor and periodically is adjusted for this. 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 He went to a physician in [place] and bought a 2nd diagnosis regarding the pathology and this was clear. Colonoscopy in 2017 showing no polyps or concerns Three weeks ago today on May 30 he had his wisdom teeth removed. Health related behavior: Never smoker Has 2 last is a wine with dinner most nights Very active goes for walks place tennis skis Recently return from 3 weeks travel in after cot in [facility] and box 1 a returning May 18. Took Malarone for malaria prophylaxis for this. 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 He has had no visual changes. He had no vision changes with his most recent episode that brought him to the ER for the 2nd time. He does complain intermittently of seeing squiggly lines. He has had a eye exam within the last 6 months. He has a long history of having bitemporal headaches. It started a ?long time ago ?and then went away and then recurred most recently in the spring. There is no ?squiggly lines ?associated with these headaches Patient denies anxiety Patient denies depression Patient denies weakness Patient denies falls Patient denies chest pain, shortness of breath, palpitations, lightheadedness, presyncope or syncope Patient denies any GI symptoms Patient History Medical History Hypothyroid (Acute) Family & Social History Social History: household members spouse Prior Living Arrangements House Safety & Behavioral: Feels Safe in Current Yes Environment Been Physically Hurt or Yes Threatened By a Person Suicidal Ideation Description None Suicide Plan Description No Plan Tobacco & Substance use: Smoking Status Never smoker alcohol intake frequency 0-2 drinks per day Substance Use Type does not use Meds Home Medications and Allergies Home Medications Medication Instructions Recorded Confirmed Type Lactobacillus acidophilus 1 tab PO QDAY #0 09/24/16 History [vitamin a ] 10,000 mg PO QDAY #0 09/24/16 History ascorbic acid (vitamin C) 2,000 mg PO QDAY #0 09/24/16 History calcium carbonate 1 tab PO QDAY #0 09/24/16 History cholecalciferol (vitamin D3) 5,000 PO QDAY #0 09/24/16 History multivitamin [Multiple Vitamins] 1 tab PO QDAY #0 09/24/16 History selenium 100 mcg PO QDAY #0 09/24/16 History thyroid (pork) [Nature-Throid] 81.25 mg PO QDAY #0 09/24/16 History Allergies Allergy/AdvReac Type Severity Reaction Status Date / Time No Known Drug Allergies Allergy Verified 06/15/19 13:16 Exam Vital Signs (past 8 hours): - 06/20/19 07:42 06/20/19 11:51 Temperature 98.3 F 98.1 F Pulse Rate 61 65 Respiratory Rate 16 21 Blood Pressure 122/76 120/80 Pulse Oximetry 99 97 Oxygen Delivery Method Room Air Oxygen Flow Rate 0 Narrative Exam Narrative: Alert and oriented x3 in no apparent distress HEENT NT: Unremarkable Neck: Supple without adenopathy, thyromegaly, jugular venous distention or bruit. No vertebral body tenderness over the cervical spine Chest: Clear to auscultation without wheezes rhonchi or crackles Cor: Regular rate and rhythm without murmur rubs or gallops Abdomen: Positive bowel sounds, soft, nontender, nondistended, no hepatosplenomegaly, no guarding, no rebound Extremities: No edema, pulses intact Skin: No rashes Neurologic exam cranial nerves 2-12 are grossly intact Strength sensation 5/5 in all large muscle groups bilateral upper and lower extremities Romberg negative No cogwheeling Mild dysmetria with [id number] left greater than right Nonfocal neurologic exam Objective Labs Result Diagrams: 06/20/19 06:39 06/20/19 05:30 Labs: Laboratory Results - last 24 hr 06/19/19 06/19/19 06/19/19 18:25 18:25 18:25 WBC 8.6 RBC 4.77 Hgb 15.1 Hct 44.1 MCV 92.6 MCH 31.7 MCHC 34.3 RDW 13.1 Plt Count 272 Neut % (Auto) 54.4 Lymph % (Auto) 33.1 [place] % (Auto) 9.8 Eos % (Auto) 2.0 Baso % (Auto) 0.7 Neut # (Auto) 4700 Lymph # (Auto) 2800 [place] # (Auto) 800 Eos # (Auto) 200 Baso # (Auto) 100 PT 12.1 INR 1.1 APTT 28 D Sodium 138 Potassium 4.5 Chloride 106 Carbon Dioxide 23 BUN 18 Creatinine 1.20 Estimated GFR 59.9 L BUN/Creatinine Ratio 15.0 Glucose 99 Calcium 9.9 TSH Free T4 06/19/19 06/19/19 06/20/19 18:25 18:25 05:30 WBC RBC Hgb Hct MCV MCH MCHC RDW Plt Count Neut % (Auto) Lymph % (Auto) [place] % (Auto) Eos % (Auto) Baso % (Auto) Neut # (Auto) Lymph # (Auto) [place] # (Auto) Eos # (Auto) Baso # (Auto) PT INR APTT Sodium 141 Potassium 4.9 Chloride 108 H Carbon Dioxide 27 BUN 17 Creatinine 1.00 Estimated GFR > 60.0 BUN/Creatinine Ratio 17.0 Glucose 95 Calcium 9.6 TSH 3.21 D Free T4 0.72 L 06/20/19 06:39 WBC 6.9 RBC 4.85 Hgb 15.4 Hct 44.6 MCV 92.0 MCH 31.6 MCHC 34.4 RDW 13.3 Plt Count 222 Neut % (Auto) 59.8 Lymph % (Auto) 24.6 L [place] % (Auto) 11.9 Eos % (Auto) 2.8 Baso % (Auto) 0.9 Neut # (Auto) 4100 Lymph # (Auto) 1700 [place] # (Auto) 800 Eos # (Auto) 200 Baso # (Auto) 100 PT INR APTT Sodium Potassium Chloride Carbon Dioxide BUN Creatinine Estimated GFR BUN/Creatinine Ratio Glucose Calcium TSH Free T4 Assessment & Plan Assessment & Plan narrative: 68-year-old male with episodes of paresthesias that I think are most likely related to cervical spine disease verses migraines. It is not clear to me that he had a true TIA. We reviewed his MRI/MRA which was normal. We reviewed his 2 CT scans which were both normal. We reviewed his thyroid tests and his labs which were normal. We reviewed his telemetry strip which was normal sinus rhythm without arrhythmia. We reviewed his echo which was normal other than mild aortic regurgitation related to aortic calcification. There is no evidence of clot. We will discharge him home. He will continue on outpatient medications including his Armor thyroid and aspirin 325 mg daily. We discussed side effects of this. We discussed signs and symptoms of concern at 1 point he should seek medical attention. I think he needs to meet with Neurology as an outpatient. He will see Dr. Dominik Bryant on Tuesday or Tuesday. He may need MRI of his neck to look for cervical spine disease. Greater than 60 minutes was spent with patient in history and physical and admission process. Code status is full code Assessment 2. Hypothyroidism without acute symptoms Plan: Follow. Continue on same thyroid medication Quality VTE Deep Vein Thrombosis/Pulmonary Embolism Present on Admission: No
--- NOTE | 2019-06-20 13:27 | PM.DS.1 ---
History of Present Illness History of Present Illness Chief complaint: thinks he is having another TIA Narrative: This 68-year-old male is a former patient of Dr. Armando says and was seen in the clinic on date of admission 06/19/2019 for follow-up from the ER for suspected TIA. Patient is otherwise very healthy having only hypothyroidism for which he takes [place] Thyroid. He presented to the emergency department on June 15 with paresthesias and suspected possible TIA. He was normotensive with a negative CT and stable vital signs without any residual symptoms and a stroke scale of 0 and no focal neurologic deficits and he was discharged home to follow up with me yesterday. He followed up with me yesterday and neurologic exam was normal and MRI MRA stroke protocol was ordered for further evaluation and echo. Of course this was waiting approval from his health insurance. He then a couple hours later was driving to hand picker his friend when he noted tingling on the right side of his face. Previously this had been on the left side of his face. He also was reversing SVT needed to give in front of his yazidism and he had some difficulty pronouncing the words which was unusual for him. He denied any loss of strength but did have paresthesias bilateral ulnar distribution of the upper extremities. No other concerns. He went back to the ER for evaluation and CT scan was negative. Stroke scale was 0-1 and labs were normal and there was no neurologic deficit but it was felt given the persistence that he needed to be admitted for further monitoring, treatment and workup. Overnight he has had no residual symptoms. He has had telemetry on has been sinus bradycardia. He has had echo and and MRI MRA stroke protocol. Past medical history: 1. Hypothyroidism for which he takes on her thyroid 2. Skiing accident where he injured his C1-C2. He received chiropractic treatment for this. This occurred in his mid 20s. He sees a chiropractor and periodically is adjusted for this. 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 He went to a physician in [place] and bought a 2nd diagnosis regarding the pathology and this was clear. Colonoscopy in 2017 showing no polyps or concerns Three weeks ago today on May 30 he had his wisdom teeth removed. Health related behavior: Never smoker Has 2 last is a wine with dinner most nights Very active goes for walks place tennis skis Recently return from 3 weeks travel in after cot in [facility] and box 1 a returning May 18. Took Malarone for malaria prophylaxis for this. 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 He has had no visual changes. He had no vision changes with his most recent episode that brought him to the ER for the 2nd time. He does complain intermittently of seeing squiggly lines. He has had a eye exam within the last 6 months. He has a long history of having bitemporal headaches. It started a ?long time ago ?and then went away and then recurred most recently in the spring. There is no ?squiggly lines ?associated with these headaches Patient denies anxiety Patient denies depression Patient denies weakness Patient denies falls Patient denies chest pain, shortness of breath, palpitations, lightheadedness, presyncope or syncope Patient denies any GI symptoms Discharge Providers Provider Date of admission: 06/19/19 20:00 Discharge Date: 06/20/19 Primary care physician: Rita Bryant MD Discharge provider: Sammi Bradley MD Summary Hospital Course Discharge Diagnosis: Paresthesias of the face Hospital Course: Patient admitted to the hospital for further evaluation and treatment for suspected possible TIA. Echo, MRI, MRA negative. Telemetry negative. Patient without further symptoms. No focal neurologic defect on exam and patient discharged to home in stable condition. He will continue same outpatient medications including 325 mg of aspirin daily. He will follow up with Dr. Bryant on Tuesday of this week. Will need Neurology evaluation as well as MRI of the cervical spine. Status at Discharge Cognitive/behavioral status at discharge: oriented Functional status at discharge: independent ambulation Overall status at discharge: patient is back to baseline Time Spent with Patient Time spent: Greater than 30 minutes Exam Vital Signs (past 8 hours): - 06/20/19 07:42 06/20/19 11:51 Temperature 98.3 F 98.1 F Pulse Rate 61 65 Respiratory Rate 16 21 Blood Pressure 122/76 120/80 Pulse Oximetry 99 97 Oxygen Delivery Method Room Air Oxygen Flow Rate 0 Narrative Exam Narrative: CC admission history and physical. Chest: Clear to auscultation without wheezes rhonchi or crackles Cor: Regular rate and rhythm without a murmur Extremities: No edema, pulses intact HEENT unremarkable Neurologic exam nonfocal Objective Labs Result Diagrams: 06/20/19 06:39 06/20/19 05:30 Labs: Laboratory Results - last 24 hr 06/19/19 06/19/19 06/19/19 18:25 18:25 18:25 WBC 8.6 RBC 4.77 Hgb 15.1 Hct 44.1 MCV 92.6 MCH 31.7 MCHC 34.3 RDW 13.1 Plt Count 272 Neut % (Auto) 54.4 Lymph % (Auto) 33.1 [place] % (Auto) 9.8 Eos % (Auto) 2.0 Baso % (Auto) 0.7 Neut # (Auto) 4700 Lymph # (Auto) 2800 [place] # (Auto) 800 Eos # (Auto) 200 Baso # (Auto) 100 PT 12.1 INR 1.1 APTT 28 D Sodium 138 Potassium 4.5 Chloride 106 Carbon Dioxide 23 BUN 18 Creatinine 1.20 Estimated GFR 59.9 L BUN/Creatinine Ratio 15.0 Glucose 99 Calcium 9.9 TSH Free T4 06/19/19 06/19/19 06/20/19 18:25 18:25 05:30 WBC RBC Hgb Hct MCV MCH MCHC RDW Plt Count Neut % (Auto) Lymph % (Auto) [place] % (Auto) Eos % (Auto) Baso % (Auto) Neut # (Auto) Lymph # (Auto) [place] # (Auto) Eos # (Auto) Baso # (Auto) PT INR APTT Sodium 141 Potassium 4.9 Chloride 108 H Carbon Dioxide 27 BUN 17 Creatinine 1.00 Estimated GFR > 60.0 BUN/Creatinine Ratio 17.0 Glucose 95 Calcium 9.6 TSH 3.21 D Free T4 0.72 L 06/20/19 06:39 WBC 6.9 RBC 4.85 Hgb 15.4 Hct 44.6 MCV 92.0 MCH 31.6 MCHC 34.4 RDW 13.3 Plt Count 222 Neut % (Auto) 59.8 Lymph % (Auto) 24.6 L [place] % (Auto) 11.9 Eos % (Auto) 2.8 Baso % (Auto) 0.9 Neut # (Auto) 4100 Lymph # (Auto) 1700 [place] # (Auto) 800 Eos # (Auto) 200 Baso # (Auto) 100 PT INR APTT Sodium Potassium Chloride Carbon Dioxide BUN Creatinine Estimated GFR BUN/Creatinine Ratio Glucose Calcium TSH Free T4 Discharge Plan Discharge Plan Discharge Problem: Transient cerebral ischemia Patient Disposition: Home Discharge Med Rec/Prescriptions Prescriptions: New aspirin 325 mg Tablet 325 mg PO DAILY 30 Days RF: 0 Thyroid (Pork) 65 mg PO 0600 30 Days RF: 0 Continued multivitamin [Multiple Vitamins] 1 EACH tablet 1 tab PO QDAY Qty: 0 RF: 0 calcium carbonate 500 MG tablet 1 tab PO QDAY Qty: 0 RF: 0 ascorbic acid (vitamin C) 500 MG tablet 2,000 mg PO QDAY Qty: 0 RF: 0 selenium 200 MCG tablet 100 mcg PO QDAY Qty: 0 RF: 0 cholecalciferol (vitamin D3) 10,000 UNIT tablet 5,000 PO QDAY Qty: 0 RF: 0 [vitamin a ] 10,000 mg PO QDAY Qty: 0 RF: 0 Lactobacillus acidophilus 1 EACH capsule 1 tab PO QDAY Qty: 0 RF: 0 thyroid (pork) [Nature-Throid] 81.25 MG tablet 81.25 mg PO QDAY Qty: 0 RF: 0 Follow up/Referrals: Rita Bryant MD [Primary Care Provider] - Provider Discharge Instructions Diet: Diet as Tolerated Diet comment: regular Activity: no heavy lifting or strenuous activity Discharge Data Primary Care Provider: Rita Bryant Attending Provider: Sammi Bradley Admit Date/Time: 06/19/19 20:00 Quality VTE Deep Vein Thrombosis/Pulmonary Embolism Present on Admission: No
== END 2019-06-20 13:54 | disposition home or self-care (01) ==
LOC: ED 18:21 → AC 20:00
PROVIDERS: Admitting Provider Family Medicine; Emergency Provider Emergency Medicine; PCP Student in an Organized Health Care Education/Training Program; Referring Provider Family Medicine; Visit Provider Family Medicine
DX: R20.2 Paresthesia of skin (principal); R29.818 Other symptoms and signs involving the nervous system; E03.9 Hypothyroidism, unspecified; R47.01 Aphasia
CPT/HCPCS: 36415; 70450; 70548; 70553; 80048; 84439; 84443; 85025; 85610; 85730; 93005; 93010; 93306; 99282; 99285; G0378

== ENCOUNTER → 2019-07-16 06:03 | Outpatient (CLI) | payer OTHER, SELFPAY ==
[2019-06-19 20:37] VITALS: BMI 29.0
--- NOTE | 2019-07-16 | DI.MRI.S_ITS ---
PROCEDURE: MR CERVICAL SPINE WO/W CON INDICATIONS: Right 4th, 5th digit numbness TECHNIQUE: Noncontrast sagittal T1 spin echo and T2 fast spin echo, sagittal STIR, foraminal oblique sagittal T2 fast spin echo, axial gradient echo or T2 fast spin echo through the cervical spine. After the administration of contrast, axial and sagittal T1 spin echo with fat saturation through the cervical spine. COMPARISON: [facility], CT, CT HEAD/BRAIN WO CON, 06/19/2019, 18:28. [facility], MR, MR STROKE, 06/20/2019, 10:26. FINDINGS: Image quality: Diagnostic Alignment and curvature: There is normal bony alignment. Marrow: Marrow is normal in overall signal, without suspicious enhancement. Spinal cord: Visualized spinal cord has normal size and signal. No cerebellar tonsillar herniation. No abnormal intramedullary enhancement. Paraspinous soft tissues: No paravertebral masses or suspicious enhancement. C2-3: Normal appearance. C3-4: The disc height is well-preserved. Loss of disc signal is seen at this level. Fggj-uw-[id number] disc osteophyte complex is seen, which is eccentric to the right. There is moderate right-sided and mild left-sided facet hypertrophy seen. There is moderate to severe right-sided and moderate left-sided neural foraminal narrowing seen. Minimal to mild central canal narrowing is seen. C4-5: The disc height is well-preserved. Loss of disc signal is seen at this level. A mild degree of generalized disc osteophyte complex is seen. Gget-ri-vsgpgtxk facet hypertrophy is seen. Mild central canal narrowing is seen. There is a minimal degree of associated mass effect upon the ventral spinal cord, as on series 4 image 22. C5-6: Mild loss of disc height is seen. Loss of disc signal is seen. Nbgj-jp-rjfdanpt disc osteophyte complex is seen, which is eccentric to the right. There is a right lateral recess disc osteophyte protrusion seen, as on series 4 image 27. There is mild left-sided and moderate right-sided neural foraminal narrowing seen. Moderate central canal narrowing is seen, with associated mass effect upon the ventral spinal cord. C6-7: Moderate loss of disc height is seen. Loss of disc signal is seen. Moderate disc osteophyte complex is seen, which is eccentric to the left. Uncovertebral joint hypertrophy is seen at this level. There is a central/left disc osteophyte protrusion seen. There is mild right-sided and moderate to severe left-sided neural foraminal narrowing seen. Moderate central canal narrowing is seen, with associated mass effect upon the ventral spinal cord. C7-T1: No significant abnormality is seen. IMPRESSION: Multiple levels of cervical spine degenerative change are seen, which are most prominent inferiorly. No abnormal enhancement is seen. Dictated by: Zane Adrian M.D. on 07/16/2019 at 8:56 Approved by: Zane Adrian M.D. on 07/16/2019 at 9:01
== END ==
PROVIDERS: PCP Student in an Organized Health Care Education/Training Program; Visit Provider Student in an Organized Health Care Education/Training Program
DX: G45.9 Transient cerebral ischemic attack, unspecified (principal); R20.0 Anesthesia of skin; M47.812 Spondylosis without myelopathy or radiculopathy, cervical region
CPT/HCPCS: 72156; A9579

== ENCOUNTER → 2020-03-31 08:32 | Outpatient (CLI) | payer OTHER, SELFPAY ==
[2020-04-01 07:50] LABS: COVID19 Sendout Not Detected (Not Detect)
== END ==
PROVIDERS: PCP Student in an Organized Health Care Education/Training Program; Visit Provider Physician Assistant
DX: Z11.59 Encounter for screening for other viral diseases (principal)
CPT/HCPCS: 87635

== ENCOUNTER → 2020-04-03 12:46 | Outpatient (CLI) | payer OTHER, SELFPAY ==
--- NOTE | 2020-04-03 | DI.RAD.S_ITS ---
PROCEDURE: XR CHEST 2V INDICATIONS: DYSPNEA WITH CHEMICAL EXPOSURE TECHNIQUE: 2 views of the chest were acquired. COMPARISON: None. FINDINGS: Surgical changes and devices: None. Lungs and pleura: Lungs are clear. No pleural effusions or pneumothorax. Mediastinum: Mediastinal contours are normal. Heart size is normal. Bones and chest wall: No suspicious bony abnormalities. Soft tissues appear unremarkable. IMPRESSION: No acute cardiopulmonary disease. Dictated by: Kendell Kevin [facility] Interpreted: Sarah Lundberg MD on 04/03/2020 at 13:55 Approved by: Sarah Lundberg MD, PhD on 04/03/2020 at 14:24
--- NOTE | 2020-04-11 08:45 | PM.PFT.1 ---
Pulmonary Function Test Referral & Results Date Patient Seen: 04/03/20 Requesting provider: Rita Bryant Indication: Dyspnea Results: The spirometry demonstrates an FVC of 4.65 L which is 114% of predicted. The FEV1 was measured at 3.40 L which is 114% of predicted. The FEV1/FVC ratio was 73 which is 99% of predicted. Following the administration of bronchodilator there was no notable change. Lung volumes show an SVC of 4.79 L which is 112% of predicted. The diffusing capacity was measured at 31.84 which is 107% of predicted. The maximum voluntary ventilation was normal Interpretation: This study demonstrates normal pulmonary function
== END ==
PROVIDERS: PCP Student in an Organized Health Care Education/Training Program; Referring Provider Student in an Organized Health Care Education/Training Program; Visit Provider Student in an Organized Health Care Education/Training Program
DX: R06.00 Dyspnea, unspecified (principal); J98.8 Other specified respiratory disorders; Z87.898 Personal history of other specified conditions
CPT/HCPCS: 71046; 94060; 94726; 94729

== ENCOUNTER → 2021-04-22 11:20 | Outpatient (CLI) | payer OTHER, SELFPAY ==
--- NOTE | 2021-04-22 11:23 | DI.RAD.S_ITS ---
PROCEDURE: XR LUMBAR SPINE 2-3V INDICATIONS: LOW BACK PAIN TECHNIQUE: 3 views of the lumbar spine were acquired. COMPARISON: None. FINDINGS: Bones: 5 fbf-hyu-msxmzvi vertebrae are present. There is normal bony alignment. No vertebral body compression fractures. No suspicious bony lesions. Multilevel lumbar facet hypertrophy and lower lumbar degenerative disc disease. Soft tissues: Overlying bowel gas pattern is normal. No suspicious soft tissue calcifications. IMPRESSION: Degenerative change. No evidence acute bony abnormality of the lumbar spine. If clinical suspicion and/or symptoms persist, further assessment with repeat plain films, or advanced imaging (e.g., CT, MRI, or bone scan) may be helpful for further assessment. Dictated by: Nino Bueno M.D. on 04/22/2021 at 12:36 Approved by: Nino Bueno M.D. on 04/22/2021 at 12:44
--- NOTE | 2021-04-22 11:23 | DI.RAD.S_ITS ---
PROCEDURE: XR KNEE RT 3V INDICATIONS: BILATERAL KNEE PAIN, LOW BACK PAIN TECHNIQUE: 3 views of the knee were acquired. COMPARISON: None. FINDINGS: Bones: No acute fracture. Scattered degenerative subchondral sclerosis and spurring. Mild narrowing of the lateral joint space. Soft tissues: No joint effusion. No suspicious soft tissue calcifications. IMPRESSION: Mild right knee joint degeneration. Dictated by: Naveen Gurrola M.D. on 04/22/2021 at 13:36 Approved by: aNveen Gurrola M.D. on 04/22/2021 at 13:38
--- NOTE | 2021-04-22 11:23 | DI.RAD.S_ITS ---
PROCEDURE: XR KNEE LT 3V INDICATIONS: BILATERAL KNEE PAIN, LOW BACK PAIN TECHNIQUE: 3 views of the knee were acquired. COMPARISON: None. FINDINGS: Bones: No fractures or dislocations. No suspicious bony lesions. Pzzz-uv-soxomwws tricompartmental osteoarthritis is seen more prominent in medial femoral tibial compartment. Soft tissues: No joint effusion. No suspicious soft tissue calcifications. 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 Dictated by: Elian Casper M.D. on 04/22/2021 at 13:35 Approved by: Elian Casper M.D. on 04/22/2021 at 13:37
== END ==
PROVIDERS: PCP Student in an Organized Health Care Education/Training Program; Referring Provider Student in an Organized Health Care Education/Training Program; Visit Provider Student in an Organized Health Care Education/Training Program
DX: M25.561 Pain in right knee (principal); M25.562 Pain in left knee; M17.0 Bilateral primary osteoarthritis of knee; M54.5 Low back pain; M47.816 Spondylosis without myelopathy or radiculopathy, lumbar region
CPT/HCPCS: 72100; 73562

== ENCOUNTER → 2021-06-08 08:20 | Outpatient (CLI) | payer OTHER, SELFPAY ==
[2021-06-08 09:51] LABS: Add Manual Diff / Slide Review NO; Basophils Absolute Auto 100 /uL (0-100); Basophils Percent Auto 1.1 % (0-2); Eosinophils Absolute Auto 200 /uL (0-450); Eosinophils Percent Auto 4.2 % (2-4); Hematocrit 46.7 % (41-53); Hemoglobin 15.6 g/dL (13.5-17.5); Lymphocytes Absolute Auto 1600 /uL (1100-4500); Lymphocytes Percent Auto 29.1 % (25-40); Mean Corpuscular HGB Conc 33.4 % (30-36); Mean Corpuscular Volume 92.7 fL (80-100); Monocytes Absolute Auto 600 /uL (0-900); Monocytes Percent Auto 10.9 % (3-14); Neutrophils Absolute Auto 3000 /uL (1500-7000); Neutrophils Percent Auto 54.7 % (50-75); Platelet Count 217 X10^3/uL (150-400); Red Blood Cell Count 5.03 X10^6/uL (4.5-5.9); Red Cell Distribution Width 13.6 % (11.6-14.8); White Blood Cell Count 5.4 X10^3/uL (4.5-11.0)
[2021-06-08 10:06] LABS: Hemoglobin A1C% w Est Avg Glu 5.2 % (4.0-6.0)
[2021-06-08 10:37] LABS: Alanine Aminotransferase 24 IU/L (<50); Albumin 4.3 g/dL (3.5-5.0); Albumin Globulin Ratio 1.3 (1.0-2.8); Alkaline Phosphatase 76 U/L (38-126); Aspartate Aminotransferase 28 IU/L (17-59); BUN Creatinine Ratio 17.6 (6-22); Bilirubin Total 0.7 mg/dL (0.2-1.3); Blood Urea Nitrogen 15 mg/dL (9-20); Carbon Dioxide 28 mmol/L (22-32); Chloride 105 mmol/L (98-107); Cholesterol 190 mg/dL (140-199); Estimated Glomerular Filt Rate > 60.0 mL/min (>60); Globulin 3.3 g/dL (1.7-4.1); Glucose 88 mg/dL (80-110); HDL Cholesterol 60 mg/dL (40-60); HEMOLYSIS < 15 (0-50); LDL Cholesterol Calculated 100 mg/dL (<100); Potassium 4.8 mmol/L (3.4-5.1); Sodium 141 mmol/L (137-145); Total Protein 7.6 g/dL (6.3-8.2); Triglycerides 152 mg/dL (35-150)
[2021-06-08 10:57] LABS: TSH w/ Reflex to FT4 2.43 uIU/mL (0.47-4.68)
== END ==
PROVIDERS: PCP Student in an Organized Health Care Education/Training Program; Referring Provider Student in an Organized Health Care Education/Training Program; Visit Provider Student in an Organized Health Care Education/Training Program
DX: E03.9 Hypothyroidism, unspecified (principal); Z12.5 Encounter for screening for malignant neoplasm of prostate; Z00.00 Encounter for general adult medical examination without abnormal findings
CPT/HCPCS: 36415; 80053; 80061; 83036; 84443; 85025; G0103

== ENCOUNTER → 2021-09-18 09:30 | Outpatient (CLI) | payer OTHER, SELFPAY ==
--- NOTE | 2021-09-18 | DI.MRI.S_ITS ---
PROCEDURE: MR LUMBAR SPINE WO CON INDICATIONS: intervertebral disc degeneration, lumbosacral TECHNIQUE: Noncontrast sagittal T1 spin echo and T2 fast echo, sagittal STIR, axial T1 and T2 fast spin echo through the lumbar spine. In cases with scoliosis, additional coronal T2 fast spin echo may be performed. COMPARISON: [facility], CR, XR LUMBAR SPINE 2-3V, 04/22/2021, 11:22. FINDINGS: Image quality: This examination is limited by involuntary motion artifact. Alignment and Curvature: There is minimal retrolisthesis seen at the L4-L5 level. Bone Marrow: Marrow is of normal overall signal. No acute vertebral body compression fractures. Spinal Cord: Conus medullaris terminates at the L1 level. Visualized cord demonstrates normal signal and size. Paraspinous Soft Tissues: No paravertebral masses. There is a presumed perineural cyst involving the left neural foramina at T11-T12 measuring 11 mm, as on series 4, image 11. A similar appearing perineural cysts can be seen on the right at the L5-S1 level, as on series 4, image 5, measuring 1 cm. An additional likely Tarlov cyst can be seen involving the inferior S2 level, as on series 4, image 9 measuring 5 mm. T12-L1: Normal appearance. L1-L2: No significant abnormality is seen. L2-L3: The disc height and disk signal are well-preserved. Moderate generalized disc bulge is seen. Moderate facet joint hypertrophy is seen. There is moderate left-sided and mild right-sided neural foraminal narrowing. At least moderate central canal narrowing is seen, as on series 5, image 16. L3-L4: The disc height and disc signal are relatively well preserved. At least moderate disc bulge is seen, with a superimposed central disc protrusion. Moderate to prominent facet hypertrophy is seen. Associated hypertrophy of the ligamentum flavum can be seen. Fluid is seen within the facet joints themselves. Moderate bilateral neural foraminal narrowing is seen. Moderate to severe central canal narrowing is seen, as on series 5, image 22. L4-L5: Moderate loss of disc height is seen. Loss of disc signal is seen. Reactive marrow endplate changes are seen, which are hyperintense on T1-weighted and T2-weighted imaging and most consistent with fatty metaplasia (Modic type II changes). At least moderate disc bulge is seen, which is eccentric to the right. Moderate facet joint hypertrophy is seen. There is moderate left-sided and mild right-sided neural foraminal narrowing. Moderate central canal narrowing is seen. L5-S1: The disc height and disc signal are relatively well preserved. Mild disc bulge is a mild central disc protrusion. Moderate facet joint hypertrophy is seen. No neural foraminal narrowing is seen. Minimal central canal narrowing is seen. IMPRESSION: Multiple levels of lumbar spine degenerative change are seen, which are worst at L3-L4 and L4-L5. 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 If there is clinical concern for a nerve sheath tumor, please consider a follow-up dedicated MRI with contrast for further evaluation. Dictated by: Zane Adrian M.D. on 09/18/2021 at 11:29 Approved by: Zane Adrian M.D. on 09/18/2021 at 11:39
== END ==
PROVIDERS: PCP Student in an Organized Health Care Education/Training Program; Referring Provider Student in an Organized Health Care Education/Training Program; Visit Provider Student in an Organized Health Care Education/Training Program
DX: M51.37 Other intervertebral disc degeneration, lumbosacral region (principal); M47.816 Spondylosis without myelopathy or radiculopathy, lumbar region; M47.817 Spondylosis without myelopathy or radiculopathy, lumbosacral region
CPT/HCPCS: 72148

== ENCOUNTER → 2022-05-11 15:11 | Outpatient (CLI) | payer OTHER, SELFPAY ==
--- NOTE | 2022-05-11 15:13 | DI.US.S_ITS ---
PROCEDURE: US EXTREMITY NONVASC UPPER LT INDICATIONS: LEFT ARM SOFT TISSUE MASS TECHNIQUE: Real-time scanning was performed of the left acromioclavicular fossa , with image documentation. COMPARISON: None. FINDINGS: 1.1 x 0.4 x 0.9 cm isoechoic mildly lobulated subcutaneous soft tissue mass corresponding to the palpable abnormality. No vascularity. IMPRESSION: Possible soft tissue lipoma; however differential would include both benign and malignant etiologies. If indicated, contrast-enhanced soft tissue MRI could be performed for further assessment. Dictated by: Kendell LEWIS Interpreted: Denzel Eugene MD on 05/11/2022 at 15:57 Transcribed by: COLIN on 05/11/2022 at 15:57 Approved by: Denzel Eugene M.D. on 05/11/2022 at 18:29
== END ==
PROVIDERS: PCP Internal Medicine; Referring Provider Internal Medicine; Visit Provider Internal Medicine
DX: M79.89 Other specified soft tissue disorders (principal); M25.522 Pain in left elbow
CPT/HCPCS: 76882

== ENCOUNTER → 2022-06-23 13:08 | Outpatient (CLI) | payer OTHER, SELFPAY ==
[2022-06-23 14:17] LABS: COVID19 -Nasal RAPID Negative (Negative)
== END ==
PROVIDERS: PCP Internal Medicine; Visit Provider Surgery
DX: Z20.822 Contact with and (suspected) exposure to COVID-19 (principal); Z01.812 Encounter for preprocedural laboratory examination
CPT/HCPCS: 87635; C9803

== ENCOUNTER 2022-06-24 06:48 | Day surgery (SDC) | payer OTHER, SELFPAY ==
--- NOTE | 2022-06-24 | PATH_ITS ---
[facility] Accession Number: [id number] . 01 Material submitted: . colon - ASCENDING COLON POLYP . 01 Diagnosis: Ascending Colon Polyp, Biopsy: Tubular adenoma. MRV 06/29/2022 1501 Local . 01 Electronically signed: . Sabrina Vazquez MD, Pathologist NPI- [id number] . 01 Gross description: . ASCENDING COLON POLYP: Received in formalin is 1 fragment(s) of conde, soft tissue measuring 0.3 x 0.2 x 0.2 cm submitted entirely in 1 cassette(s) /CHRISSY 06/28/2022 1844 Local . 01 Pathologist provided ICD-10: D12.2 . 01 CPT . 216262 Specimen Comment: A courtesy copy of this report has been sent to [phone] Performed at: 01 [facility] [address] [place] [address] [id number] MD Vahid Becker MD Phone: [phone]
[2022-06-24 07:14] VITALS: BP 133/79; PULSE 80; RESP 16; TEMP 36.3; O2SAT 97; BMI 28.1
[2022-06-24] MEDS: LACTATED RINGERS 1,000 ML 100 ML IV (07:27)
--- NOTE | 2022-06-24 07:50 | PM.HP.1 ---
History of Present Illness History of Present Illness Date Patient Seen: 06/24/22 Time Patient Seen: 07:50 Chief complaint: SDC Narrative: Incident is a 71-year-old man who is here for a screening colonoscopy today. His last colonoscopy was in 2017 and no polyps were found. He has no known family history of colon cancer. He is a [employer] and does not want to have any blood products. Patient History Medical History (Updated 06/24/22 @ 07:51 by Ronny Santoro MD) Hypothyroid Family & Social History Social History: household members spouse Tobacco & Substance use: Smoking Status Never smoker alcohol intake current alcohol intake frequency 0-2 drinks per day Substance Use Type does not use Meds Home Medications and Allergies Home Medications Medication Instructions Recorded Confirmed Type Lactobacillus acidophilus 1 tab PO QDAY ##0 09/24/16 History [vitamin a ] 10,000 mg PO QDAY ##0 09/24/16 06/24/22 History ascorbic acid (vitamin C) 500 mg 2,000 mg PO QDAY ##0 09/24/16 06/24/22 History tablet calcium carbonate 500 mg calcium 1 tab PO QDAY ##0 09/24/16 History (1,250 mg) tablet cholecalciferol (vitamin D3) 250 5,000 PO QDAY ##0 09/24/16 History mcg (10,000 unit) tablet multivitamin (Multiple Vitamins 1 tab PO QDAY ##0 09/24/16 History tablet) selenium 200 mcg tablet 100 mcg PO QDAY ##0 09/24/16 History thyroid (pork) 81.25 mg tablet 60 mg PO QDAY ##0 09/24/16 History (Nature-Throid) Allergies Allergy/AdvReac Type Severity Reaction Status Date / Time wheat Allergy Mild Fatigued Verified 06/24/22 07:00 Exam Vital Signs (past 8 hours): - 06/24/22 07:14 Temperature 97.4 F L Pulse Rate 80 Respiratory Rate 16 Blood Pressure 133/79 Pulse Oximetry 97 Const General: healthy appearing Assessment & Plan Assessment and plan (1) Colon cancer screening: Status: Acute Plan 71-year-old man with a history of colon cancer screening here for colonoscopy. We reviewed the risks and benefits and he would like to proceed Time Spent With Patient Critical Care time: I spent a total of [] minutes of critical care time on this patient's care today; this time is exclusive of procedural time.
--- NOTE | 2022-06-24 08:33 | PM.OP.COLON ---
Operative Date/Time/Diagnoses Date of procedure: 06/24/22 Time of procedure: 08:33 Pre-op diagnosis: Colon cancer screening Post-op diagnosis: same Procedure & Clinicians Study performed: Colonoscopy Same procedure as scheduled: Yes Surgeon: Ronny Santoro Procedure Notes Procedure in detail: Surgeon: Ronny Santoro MD Sedation: MAC by Dr. Morel Procedure: The patient was brought to the endoscopy suite, placed in left lateral decubitus position. The patient was connected to monitoring devices. A time-out was performed. Sedation was administered. Once the patient was adequately sedated, a digital rectal exam was performed and was normal. The scope was then inserted and advanced to the cecum where the appendiceal orifice was identified and photographed. The scope was then slowly withdrawn over greater than 6 minutes. The mucosa was thoroughly inspected. There was a 4 mm polyp in the ascending colon which was with a cold snare. No other polyps or lesions were noted. The scope was retroflexed in the rectum. No abnormality was noted. The scope was straightened and removed. The patient was awakened and brought to recovery. EBL: 5 mL Findings: A 4 mm polyp in the ascending colon Post-procedure Recommendations: Will call with biopsy results Disposition: PACU
[2022-06-24 08:35] VITALS: BP 102/70; PULSE 57; RESP 12; TEMP 36.4; O2SAT 92
[2022-06-24 08:39] VITALS: BP 107/68; PULSE 54; RESP 15; O2SAT 994
[2022-06-24 08:44] VITALS: BP 118/79; PULSE 72; RESP 13; O2SAT 94
[2022-06-24 08:50] VITALS: BP 116/82; PULSE 66; RESP 14; TEMP 36.4; O2SAT 95
[2022-06-24 08:54] VITALS: BP 118/86; PULSE 58; RESP 16; TEMP 36.4; O2SAT 94
== END 2022-06-24 09:20 | disposition home or self-care (01) ==
PROVIDERS: PCP Internal Medicine; Referring Provider Surgery; Visit Provider Surgery
PROC: 0DJD8ZZ Inspection of Lower Intestinal Tract, Via Natural or Artificial Opening Endoscopic (ICD-10-PCS; CPT 45378; principal; 2022-06-24 07:45)
DX: Z12.11 Encounter for screening for malignant neoplasm of colon (principal); E03.9 Hypothyroidism, unspecified; D12.2 Benign neoplasm of ascending colon
CPT/HCPCS: 45385; J2704; J3010

== ENCOUNTER 2023-01-17 08:49 | Emergency (ER) | payer OTHER, SELFPAY ==
[2023-01-17 08:55] VITALS: BP 144/73; PULSE 64; RESP 16; TEMP 36.6; O2SAT 98; BMI 28.8
--- NOTE | 2023-01-17 09:01 | DI.RAD.S_ITS ---
PROCEDURE: XR SHOULDER LT MIN 2V INDICATIONS: Injury TECHNIQUE: Three views of the shoulder were acquired. COMPARISON: None. FINDINGS: Bones: No acute fractures. Moderate degenerative changes at both the acromioclavicular and glenohumeral joints. There is glenohumeral joint space loss. Otherwise normal bone alignment. Visible rib arcs are intact. Soft tissues: Collection of several rounded calcifications project along the anterior humeral neck, potentially within the biceps tendon or muscle. Visible underlying left lung is normal. IMPRESSION: 1. No acute process. 2. 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 on 01/17/2023 at 9:02 Approved by: Sheri Dukes M.D. on 01/17/2023 at 9:10
--- NOTE | 2023-01-17 10:42 | ED.UPPEXIN ---
HPI - Extremity Injury (Upper) <Mann Mckenna PA-C - Last Filed: 01/17/23 10:47> General Chief Complaint: Extremity Injury, Upper Stated Complaint: wrecked LT shoulder Time Seen by Provider: 01/17/23 10:29 Source: patient Mode of arrival: Ambulatory History of Present Illness HPI narrative: 72-year-old male presents to the ED status post a left shoulder injury sustained 5 days prior to arrival. Patient states that he was reaching out with his right arm to prevent something from falling, tried to brace himself from falling with his left arm, ended up over stretching his left shoulder. Patient states that he is experiencing pain in the left shoulder, but denies numbness, tingling, weakness. Patient states he has good range of motion, however it is painful to move his arm. Related Data Home Medications Medication Instructions Recorded Confirmed Lactobacillus acidophilus 1 tab PO QDAY ##0 09/24/16 [vitamin a ] 10,000 mg PO QDAY ##0 09/24/16 06/24/22 ascorbic acid (vitamin C) 500 mg 2,000 mg PO QDAY ##0 09/24/16 06/24/22 tablet calcium carbonate 500 mg calcium 1 tab PO QDAY ##0 09/24/16 (1,250 mg) tablet cholecalciferol (vitamin D3) 250 5,000 PO QDAY ##0 09/24/16 mcg (10,000 unit) tablet multivitamin (Multiple Vitamins 1 tab PO QDAY ##0 09/24/16 tablet) selenium 200 mcg tablet 100 mcg PO QDAY ##0 09/24/16 thyroid (pork) 81.25 mg tablet 60 mg PO QDAY ##0 09/24/16 (Nature-Throid) Previous Rx's Medication Instructions Recorded cyclobenzaprine 10 mg tablet 10 mg PO TID PRN muscle spasm 5 01/17/23 days #15 tabs Allergies Allergy/AdvReac Type Severity Reaction Status Date / Time wheat Allergy Mild Fatigued Verified 01/17/23 09:00 Review of Systems <Mann Mckenna PA-C - Last Filed: 01/17/23 10:47> Review of Systems ROS Unobtainable: All systems reviewed & are unremarkable except as noted in HPI and below Constitutional Constitutional: Denies chills, Denies fatigue, Denies fever(s), Denies frequent falls, Denies lethargy and Denies weakness Eyes Eyes: Denies change in vision, Denies eye discharge, Denies irritation and Denies loss of vision ENT Ears, Nose, Mouth, and Throat: Denies change in voice, Denies dizziness, Denies neck pain, Denies sore throat and Denies throat swelling Cardiovascular Cardiovascular: Denies chest pain, Denies irregular heart rhythm, Denies lightheadedness, Denies palpitations, Denies dyspnea, Denies dyspnea on exertion and Denies orthopnea Respiratory Respiratory: Denies cough, Denies dyspnea, Denies dyspnea on exertion and Denies wheezing Gastrointestinal Gastrointestinal: Denies abdominal pain, Denies change in bowel habits, Denies diarrhea, Denies nausea and Denies vomiting Genitourinary Genitourinary: Denies hematuria, Denies flank pain, Denies urinary incontinence and Denies urinary urgency Musculoskeletal Musculoskeletal: Denies back pain, Denies muscle weakness, Denies neck pain, Denies numbness and Denies tingling Comments: Left shoulder pain Integumentary/Breasts Skin/Breast: Denies pruritus, Denies erythema, Denies rash and Denies wounds Neurologic Neurologic: Denies behavioral changes, Denies confusion, Denies dizziness, Denies frequent falls, Denies loss of vision, Denies numbness, Denies tingling and Denies weakness Psychiatric Psychiatric: Denies anxiety, Denies behavioral changes, Denies confusion, Denies depression, Denies homicidal ideation and Denies suicidal ideation Endocrine Endocrine: Denies fatigue, Denies flushing and Denies palpitations Hematologic/Lymphatic Hematologic/Lymphatic: Denies easy bruising Allergic/Immunologic Allergic/Immunologic: Denies urticaria, Denies throat swelling and Denies wheezing Patient History <Mann Mckenna PA-C - Last Filed: 01/17/23 10:47> Medical History Hypothyroid Social History household members: spouse Smoking Status: Never smoker alcohol intake: current Smoking Status: Never smoker alcohol intake frequency: 0-2 drinks per day Substance Use Type: does not use Exam <Mann Mckenna PA-C - Last Filed: 01/17/23 10:47> Narrative Exam Narrative: Const General:?cooperative, healthy appearing and comfortable [facility] Head:?normal to inspection Ears:?hearing grossly normal bilaterally Nose:?external nose normal Face and sinus:?normal facial exam and sinuses nontender Mouth:?oral mucosae normal Throat:?posterior oropharynx normal Eyes General:?appearance normal, both eyes and all related structures Neck Neck:?normal visual inspection and no lymphadenopathy noted Resp Effort & Inspection:?normal respiratory effort Auscultation:?clear to auscultation bilaterally Cardio Rate:?regular rate Rhythm:?regular rhythm Musculoskeletal Left shoulder does not appear deformed; no swelling; no erythema. There is mild tenderness to palpation. There is good range of motion. Strength and sensation is intact. Patient is neurovascularly intact. Neuro General:?patient alert, patient awake and patient oriented x3 Initial Vital Signs Initial Vital Signs: Vital Signs Temperature 97.9 F 01/17/23 08:55 Pulse Rate 64 01/17/23 08:55 Respiratory Rate 16 01/17/23 08:55 Blood Pressure 144/73 H 01/17/23 08:55 Pulse Oximetry 98 01/17/23 08:55 Oxygen Delivery Method Room Air 01/17/23 08:55 <DO Duran Mckenzie Last Filed: 01/17/23 19:41> Initial Vital Signs Initial Vital Signs: Vital Signs Temperature 97.9 F 01/17/23 08:55 Pulse Rate 64 01/17/23 08:55 Respiratory Rate 16 01/17/23 08:55 Blood Pressure 144/73 H 01/17/23 08:55 Pulse Oximetry 98 01/17/23 08:55 Oxygen Delivery Method Room Air 01/17/23 08:55 Course <Mann Mckenna PA-C - Last Filed: 01/17/23 10:47> Orders Ordered: ED Orders 01/17/23 09:01 XR shoulder LT min 2V Stat Vital Signs Vital signs: Vital Signs - 8 hr 01/17/23 08:55 Temperature 97.9 F Pulse Rate 64 Respiratory Rate 16 Blood Pressure 144/73 H Pulse Oximetry 98 Oxygen Delivery Method Room Air <DO Duran Mckenzie Last Filed: 01/17/23 19:41> Orders Ordered: ED Orders 01/17/23 09:01 XR shoulder LT min 2V Stat Vital Signs Vital signs: Vital Signs - 8 hr 01/17/23 08:55 Temperature 97.9 F Pulse Rate 64 Respiratory Rate 16 Blood Pressure 144/73 H Pulse Oximetry 98 Oxygen Delivery Method Room Air MDM - Extremity Injury (Upper) <Mann Mckenna PA-C - Last Filed: 01/17/23 10:47> [facility] Narrative Medical decision making narrative: 72-year-old male presents to the ED status post a left shoulder injury sustained 5 days prior to arrival. Concern for sprain/strain versus fracture/dislocation. X-ray was obtained, x-ray shows no dislocations or fractures. Patient's symptoms likely due to a shoulder sprain/strain. Recommend supportive care with heat packs, lidocaine patches, Tylenol, ibuprofen, Aleve. Will prescribe Flexeril. Fitted with sling for comfort. Recommend follow-up with PCP as soon as possible. ED return precautions were discussed with patient. Patient verbalized understanding. Medical records reviewed: Yes Discharge Plan Departure Patient Disposition: Home Clinical Impression: Shoulder sprain Instructions: DI for Shoulder Sprain Activity Restrictions/Additional Instructions: You were evaluated in the ED today for left shoulder pain. Your x-ray did not show any fractures or dislocations. Your symptoms are likely due to a shoulder sprain/strain from the injury. You may take Tylenol or ibuprofen or Aleve for your symptoms. You may apply lidocaine patches which are sold [id number] under the brand name Salonpas. You are also being fitted with a sling to wear for comfort while you heal. You may also apply heat packs for symptom relief. Please follow-up with your PCP as soon as possible. Return to the ED if you experience any numbness, tingling, weakness. Prescriptions: New cyclobenzaprine 10 mg tablet 10 mg PO TID PRN (Reason: muscle spasm) 5 Days Qty: 15 0RF No Action multivitamin [Multiple Vitamins] 1 EACH tablet 1 tab PO QDAY Qty: 0 calcium carbonate 500 MG tablet 1 tab PO QDAY Qty: 0 ascorbic acid (vitamin C) 500 MG tablet 2,000 mg PO QDAY Qty: 0 selenium 200 MCG tablet 100 mcg PO QDAY Qty: 0 cholecalciferol (vitamin D3) 10,000 UNIT tablet 5,000 PO QDAY Qty: 0 [vitamin a ] 10,000 mg PO QDAY Qty: 0 Lactobacillus acidophilus 1 EACH capsule 1 tab PO QDAY Qty: 0 Nature-Throid 81.25 MG tablet 60 mg PO QDAY Qty: 0 Referrals: Binta Ludwig ARNP [Primary Care Provider] - Stand Alone Forms: Patient Portal/API <Mari Smith DO - Last Filed: 01/17/23 19:41> Cosign ED Attending Cosignature Attestation: I was immediately available in the department for consultation. Documentation has been reviewed.
[2023-01-17 10:43] VITALS: BP 135/69; PULSE 54; RESP 16; O2SAT 99
== END 2023-01-17 10:48 | disposition home or self-care (01) ==
PROVIDERS: Emergency Provider Student in an Organized Health Care Education/Training Program; PCP Internal Medicine
DX: S43.402A Unspecified sprain of left shoulder joint, initial encounter (principal); X50.1XXA Overexertion from prolonged static or awkward postures, initial encounter
CPT/HCPCS: 73030; 99283

== ENCOUNTER → 2023-05-19 07:45 | Outpatient (CLI) | payer OTHER, SELFPAY ==
--- NOTE | 2023-05-19 | DI.MRI.S_ITS ---
PROCEDURE: MR LUMBAR SPINE WO CON INDICATIONS: Other specified spondylopathies, lumbar region TECHNIQUE: Noncontrast sagittal T1 spin echo and T2 fast echo, sagittal STIR, and T2 fast spin echo through the lumbar spine. In cases with scoliosis, additional coronal T2 fast spin echo may be performed. COMPARISON: , MR, MR LUMBAR SPINE WO CON, 09/18/2021, 9:47. FINDINGS: Image quality: Excellent. Alignment and Curvature: There is normal bony alignment. Bone Marrow: Marrow is of normal overall signal. No acute vertebral body compression fractures. Spinal Cord: Conus medullaris terminates at the L1 level. Visualized cord demonstrates normal signal and size. Paraspinous Soft Tissues: No paravertebral masses. T12-L1: No significant disc bulge. The foramina and central canal are patent. L1-L2: No significant disc bulge. The foramina and central canal are patent. L2-L3: Diffuse disc bulge and facet hypertrophy causes moderate bilateral foraminal stenosis. The ligamentum flavum is hypertrophic. The central canal has moderately severe stenosis. L3-L4: Diffuse disc bulge and facet hypertrophy cause moderate bilateral foraminal stenosis. The ligamentum flavum is hypertrophic. The central canal has severe stenosis. L4-L5: Disc space narrowing with Modic type 2 endplate changes. Diffuse disc bulge with disc osteophytes and facet hypertrophy cause moderate bilateral foraminal stenosis the central canal has mild stenosis. L5-S1: Small central annular tear. The foramina and central canal are patent. IMPRESSION: 1. Multilevel lumbar spondylosis causing foraminal and central canal stenosis as detailed above. 2. Severe central canal stenosis at L3-4 and moderately severe central canal stenosis at L2-3. Dictated by: Jigar Fry M.D. on 05/19/2023 at 9:38 Approved by: Jigar Fry M.D. on 05/19/2023 at 9:47
== END ==
PROVIDERS: PCP Internal Medicine; Referring Provider Registered Nurse; Visit Provider Registered Nurse
DX: M47.816 Spondylosis without myelopathy or radiculopathy, lumbar region (principal); M48.061 Spinal stenosis, lumbar region without neurogenic claudication; M48.8X6 Other specified spondylopathies, lumbar region
CPT/HCPCS: 72148

== ENCOUNTER → 2025-07-17 07:03 | Outpatient (CLI) | payer OTHER, SELFPAY ==
--- NOTE | 2025-07-17 07:42 | DI.MRI.S_ITS ---
PROCEDURE: MR LUMBAR SPINE WO CON INDICATIONS: LUMBAR STENOSIS TECHNIQUE: Noncontrast sagittal T1 spin echo and T2 fast echo, sagittal STIR, and T2 fast spin echo through the lumbar spine. In cases with scoliosis, additional coronal T2 fast spin echo may be performed. COMPARISON: [facility], MR, MR LUMBAR SPINE WO CON, 05/19/2023, 8:06. FINDINGS: Image quality: Excellent. Alignment and Curvature: There is normal bony alignment. Bone Marrow: Marrow is of normal overall signal. No acute vertebral body compression fractures. Spinal Cord: Conus medullaris terminates at the L1 level. Visualized cord demonstrates normal signal and size. Paraspinous Soft Tissues: No paravertebral masses. T12-L1: Normal appearance. L1-L2: Disc desiccation. No significant disc bulge, canal stenosis or neural foraminal narrowing. Bilateral facet arthrosis is seen. L2-L3: Disc desiccation. Broad-based disc bulge and bilateral facet arthrosis with hypertrophy of ligamentum flavum causing moderate to severe central canal stenosis and moderate left worse than right bilateral neural foraminal narrowing. L3-L4: There is loss of disc height and disc desiccation. Broad-based disc bulge and bilateral facet arthrosis with hypertrophy of ligamentum flavum causing severe central canal stenosis and moderate to severe bilateral neural foraminal narrowing. Bulging disc likely contacting bilateral exiting L3 nerve roots. L4-L5: Loss of disc height and disc desiccation. Broad-based disc bulge and bilateral facet arthrosis with hypertrophy of ligamentum flavum causing mild central canal stenosis and moderate to severe bilateral neural foraminal narrowing. Bulging disc likely contacting bilateral L4 nerve roots. L5-S1: Disc desiccation. Mild diffuse disc bulge and bilateral facet arthrosis is seen with mild central canal stenosis and [id number] left-sided neural foraminal narrowing. Bulging disc likely contacting left L5 nerve root. IMPRESSION: 1. No marrow edema. No acute compression fracture or spondylolisthesis. 2. Spondylitic changes throughout lumbar spine causing various degrees of central canal stenosis and bilateral neural foraminal narrowing progressed compared to 2022 study particularly at L3-4 and L4-5 levels. Dictated by: Elian Casper M.D. on 07/17/2025 at 8:56 Approved by: Elian Casper M.D. on 07/17/2025 at 9:16
== END ==
LOC: MRI 07:04
PROVIDERS: PCP Registered Nurse; Referring Provider Registered Nurse; Visit Provider Registered Nurse
DX: M51.16 Intervertebral disc disorders with radiculopathy, lumbar region (principal); M51.17 Intervertebral disc disorders with radiculopathy, lumbosacral region; M48.062 Spinal stenosis, lumbar region with neurogenic claudication; M48.07 Spinal stenosis, lumbosacral region; M47.26 Other spondylosis with radiculopathy, lumbar region; M47.27 Other spondylosis with radiculopathy, lumbosacral region
CPT/HCPCS: 72148